=== PATIENT | male | born 1965 | race Caucasian/White ===

== ENCOUNTER 2016-06-04 18:36 | Emergency (ER) | payer MEDICARE ==
[2016-06-04 19:22] LABS: Basophils % (Auto) 0.8 % (0.0-1.8); Hematocrit 43.7 % (35.5-45.6); Hemoglobin 14.6 gm/dl (11.8-15.2); Mean Corpuscular HGB Conc 33 % (32-34); Mean Corpuscular Hemoglobin 30 pg (28-32); Mean Corpuscular Volume 90 fl (84-94); Platelet Count 175 K/mm3 (140-440); Red Blood Count 4.85 M/mm3 (3.65-5.03); Red Cell Distribution Width 14.6 % (13.2-15.2); White Blood Count 8.4 K/mm3 (4.5-11.0)
[2016-06-04 19:44] LABS: BUN/Creatinine Ratio 15.45; Blood Urea Nitrogen 17 mg/dL (9-20); Calcium 9.4 mg/dL (8.4-10.2); Carbon Dioxide 21 mmol/L (22-30); Chloride 101.8 mmol/L (98-107); Glucose 82 mg/dL (75-100); Potassium 4.2 mmol/L (3.6-5.0); Sodium 140 mmol/L (137-145)
[2016-06-04 19:48] LABS: Anion Gap 21 mmol/L
[2016-06-04] MEDS ORDERED: FIORICET PO ONE (20:29)
--- NOTE | 2016-06-04 20:34 | Emergency Department Report ---
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 Patient states that the headache started last night, similar to prior headaches he has had. Denies any new numbness, weakness or any changes speech or swallowing. He also states that last night he had some chest pain however he denies any chest pain at the moment. - Related Data Previous Rx's Medication Instructions Recorded Last Taken Type Acetaminophen [Acetaminophen TAB] 325 mg PO Q6H PRN #30 tablet 02/29/16 Unknown Rx Aspirin [Aspirin BABY CHEW TAB] 81 mg PO QDAY #30 02/29/16 02/28/16 Rx Clopidogrel [Plavix] 75 mg PO QDAY #30 02/29/16 02/28/16 Rx Lisinopril [Zestril TAB] 40 mg PO QDAY #30 02/29/16 02/28/16 Rx Metoprolol [Lopressor TAB] 50 mg PO BID #60 tablet 02/29/16 Unknown Rx Nicotine [Habitrol] 14 mg TD QDAY #14 patch 02/29/16 Unknown Rx Pregabalin [Lyrica] 50 mg PO BID #60 capsule 02/29/16 Unknown Rx Rosuvastatin Calcium [Crestor] 40 mg PO QHS #30 02/29/16 02/27/16 Rx Zolpidem [Ambien] 5 mg PO QHS PRN #15 tablet 02/29/16 Unknown Rx buPROPion SR [Wellbutrin SR] 100 mg PO BID #60 tablet 02/29/16 Unknown Rx oxyCODONE /ACETAMINOPHEN [Percocet 1 tab PO Q6HR PRN #10 tablet 06/04/16 Unknown Rx 5/325] Allergies Allergy/AdvReac Type Severity Reaction Status Date / Time No Known Allergies Allergy Unverified 02/28/16 09:38 ED Review of Systems ROS: Stated complaint: CHEST PAIN Other details as noted in HPI Comment: All other systems reviewed and negative Constitutional: denies: chills, fever Respiratory: denies: cough, shortness of breath Cardiovascular: chest pain Gastrointestinal: denies: abdominal pain, nausea, vomiting Neurological: as per HPI, headache, other Psychiatric: denies: anxiety ED Past Medical Hx - Past Medical History Hx Hypertension: Yes Hx CVA: Yes Hx Heart Attack/AMI: Yes (x2) Hx Congestive Heart Failure: No Hx Diabetes: No Hx Asthma: No Hx COPD: No Additional medical history: [place] -- stents x2 2013; stroke x2 2012. aortic arch aneurysym - evaluated yearly by CT, last done 2014 - Surgical History Additional Surgical History: Cardiac stents x2 - Social History Smoking Status: Light Tobacco Smoker - Medications Home Medications: Home Medications Medication Instructions Recorded Confirmed Last Taken Type Acetaminophen [Acetaminophen TAB] 325 mg PO Q6H PRN #30 tablet 02/29/16 Unknown Rx Aspirin [Aspirin BABY CHEW TAB] 81 mg PO QDAY #30 02/29/16 02/28/16 02/28/16 Rx Clopidogrel [Plavix] 75 mg PO QDAY #30 02/29/16 02/28/16 02/28/16 Rx Lisinopril [Zestril TAB] 40 mg PO QDAY #30 02/29/16 02/28/16 02/28/16 Rx Metoprolol [Lopressor TAB] 50 mg PO BID #60 tablet 02/29/16 Unknown Rx Nicotine [Habitrol] 14 mg TD QDAY #14 patch 02/29/16 Unknown Rx Pregabalin [Lyrica] 50 mg PO BID #60 capsule 02/29/16 Unknown Rx Rosuvastatin Calcium [Crestor] 40 mg PO QHS #30 02/29/16 02/28/16 02/27/16 Rx Zolpidem [Ambien] 5 mg PO QHS PRN #15 tablet 02/29/16 Unknown Rx buPROPion SR [Wellbutrin SR] 100 mg PO BID #60 tablet 02/29/16 Unknown Rx oxyCODONE /ACETAMINOPHEN [Percocet 1 tab PO Q6HR PRN #10 tablet 06/04/16 Unknown Rx 5/325] ED Physical Exam - General Limitations: No Limitations General appearance: alert, in no apparent distress - Head Head exam: Present: atraumatic - Eye Eye exam: Present: normal appearance - ENT ENT exam: Present: normal exam - Respiratory Respiratory exam: Present: normal lung sounds bilaterally - Cardiovascular Cardiovascular Exam: Present: regular rate, normal heart sounds - GI/Abdominal GI/Abdominal exam: Present: soft, tenderness - Neurological Exam Neurological exam: Present: alert, other (RUE and RLE 5/5 strength, LUE and LLE 4/5 strength) - Psychiatric Psychiatric exam: Present: normal affect ED Course Vital Signs 06/04/16 06/04/16 06/04/16 18:52 19:50 20:49 Temperature 98.3 F Pulse Rate 79 Respiratory 18 18 18 Rate Blood Pressure 158/117 O2 Sat by Pulse 99 98 Oximetry ED Medical Decision Making - Lab Data Result diagrams: 06/04/16 19:10 06/04/16 19:10 - EKG Data When compared to previous EKG there are: no significant change - Medical Decision Making Labs pre-ordered, EKG done by EMS, CT of head, fioricet and chest x-ray are ordered. EKG shows normal sinus rhythm without any ST changes, there are T-wave inversions in lead 3 and aVF. Last EKG and system shows similar T-wave inversions in lead 3 and aVF. Labs are unremarkable including negative troponin, CT of head shows no changes. Patient's pain is improved and states now that is this pain is similar to prior episodes and that he was chronic pain. He is denying any chest pain throughout his ER stay. Discussed results of tests with patient. Will discharge home with pain medication. Critical care attestation.: If time is entered above; I have spent that time in minutes in the direct care of this critically ill patient, excluding procedure time. ED Disposition Clinical Impression: Chest pain Qualifiers: Chest pain type: unspecified Qualified Code(s): R07.9 - Chest pain, unspecified Chronic headache Qualifiers: Headache type: unspecified Intractability: not intractable Qualified Code(s): R51 - Headache Disposition: DISCHARGED TO HOME OR SELFCARE Is pt being admited?: No Does the pt Need Aspirin: No Condition: Stable Instructions: Chest Pain (ED) Additional Instructions: Please follow-up with your primary care doctor in the next 3-5 days. Return to the emergency room if you have any new or worsening symptoms. Prescriptions: oxyCODONE /ACETAMINOPHEN [Percocet 5/325] 1 tab PO Q6HR PRN #10 tablet PRN Reason: Pain Referrals: PRIMARY CARE, [Primary Care Provider] - 3-5 Days
--- NOTE | 2016-06-04 21:20 | Cat Scan Report ---
FINAL REPORT PROCEDURE: CT HEAD/BRAIN WO CON TECHNIQUE: Computerized tomography of the head was performed without contrast material. HISTORY: headache hx of CVAs COMPARISON: No prior studies are available for comparison. FINDINGS: Skull and scalp: Normal. Paranasal sinuses: Fluid and thickening ethmoids. Ventricles and subarachnoid spaces: Normal. Cerebrum: No evidence of hemorrhage, acute infarction or mass . Cerebellum and brainstem: No evidence of hemorrhage, acute infarction or mass. Vasculature: No hyperdense MCA. Comments: Mild diffuse atrophy. Minimal microischemic change and lacunar disease.. Chronic parafalcine calcifications anteriorly IMPRESSION: No significant or acute intracranial pathology seen at this time
[2016-06-05 01:53] VITALS: BP 142/78
--- NOTE | 2016-06-05 08:56 | XRay Report ---
Portal chest: The aorta is tortuous. The heart is probably normal or possibly borderline for positioning. The lungs are clear there is no vascular congestion. These findings appear unchanged from February 28, 2016. Impression: No acute findings.
== END 2016-06-05 01:00 | disposition home or self-care (01) ==
LOC: ED 18:36
DX: R07.9 Chest pain, unspecified (principal); R51 Headache; I10 Essential (primary) hypertension; I63.9 Cerebral infarction, unspecified; I25.2 Old myocardial infarction; Z72.0 Tobacco use; Z79.82 Long term (current) use of aspirin
CPT/HCPCS: 36415; 70450; 71010; 80048; 84484; 85025

== ENCOUNTER 2017-02-02 09:32 | Inpatient (IN) | payer MEDICARE ==
--- NOTE | 2017-02-02 09:52 | Emergency Department Report ---
Chief Complaint: Chest Pain Stated Complaint: CHEST PAIN Time Seen by Provider: 02/02/17 09:50 - HPI History of Present Illness: PT c/o chest pain that woke him up at 0600. PT also reports headache and body pain. PT states his left side started to hurt and now his right side is hurting. PT states it feels like someone is kicking him. - ROS Review of Systems: + vomited x 1 - Exam Vital Signs: Vital Signs 02/02/17 09:41 Temperature 98.2 F Pulse Rate 67 Respiratory 18 Rate Blood Pressure 134/94 O2 Sat by Pulse 98 Oximetry Physical Exam: PT is alert and appropriate no acute resp distress noted. rrr MSE screening note: Focused history and physical exam performed. Due to findings the following was ordered: ekg, labs, xr ED Disposition for MSE Condition: Stable
[2017-02-02 10:26] LABS: Anion Gap 20 mmol/L; BUN/Creatinine Ratio 23.33; Blood Urea Nitrogen 21 mg/dL (9-20); Carbon Dioxide 20 mmol/L (22-30); Chloride 103.1 mmol/L (98-107); Glucose 123 mg/dL (75-100); Potassium 3.7 mmol/L (3.6-5.0); Sodium 139 mmol/L (137-145)
--- NOTE | 2017-02-02 10:28 | XRay Report ---
CHEST TWO VIEWS: 02/02/17 09:32:00 CLINICAL: Chest pain and cough. COMPARISON: 11/13/16 FINDINGS: Normal heart and pulmonary vasculature.Aortic tortuosity. The lungs are normally expanded and clear.Degenerative changes in the spine. IMPRESSION: No acute cardiopulmonary process.
[2017-02-02 10:44] LABS: Basophils % (Auto) 0.8 % (0.0-1.8); Eosinophils % (Auto) 5.9 % (0.0-4.3); Hematocrit 41.3 % (35.5-45.6); Hemoglobin 13.7 gm/dl (11.8-15.2); Mean Corpuscular HGB Conc 33 % (32-34); Mean Corpuscular Hemoglobin 31 pg (28-32); Mean Corpuscular Volume 92 fl (84-94); Platelet Count 166 K/mm3 (140-440); Red Cell Distribution Width 14.9 % (13.2-15.2); White Blood Count 6.9 K/mm3 (4.5-11.0)
[2017-02-02] MEDS ORDERED: BABY ASPIRIN PO ONE (13:50)
[2017-02-02] MEDS ORDERED: MORPHINE IV ONE ×2 (13:51→21:49)
--- NOTE | 2017-02-02 14:49 | Emergency Department Report ---
ED Chest Pain HPI - General Chief Complaint: Chest Pain Stated Complaint: CHEST PAIN Time Seen by Provider: 02/02/17 09:50 Source: patient Mode of arrival: Ambulatory Limitations: No Limitations - History of Present Illness Initial Comments: This is a 51-year-old male presents to the emergency department with a complaint of left-sided chest pain as well as some left-sided body aches, shortness of breath at all began this morning. The patient has a history of CVA 2 with some residual left-sided weakness. He has a history of coronary artery disease including NE 2 with a stent being placed here 2 months ago. He also has a past nuchal history of hypertension and previous aortic arch aneurysm which is evaluated yearly by CT. 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 He did not take anything for her symptoms. Presentation. He was dropped off by a friend. No recent travel or sick contacts at home. Severity scale (0 -10): 10 - Related Data Previous Rx's Medication Instructions Recorded Last Taken Type Lisinopril [Zestril TAB] 40 mg PO QDAY #30 02/29/16 1 Day Ago Rx buPROPion SR [Wellbutrin SR] 100 mg PO BID #60 tablet 02/29/16 1 Day Ago Rx Acetaminophen [Acetaminophen TAB] 325 mg PO Q4H PRN #30 tablet 11/13/16 1 Day Ago Rx Aspirin EC [Aspirin Enteric Coated 81 mg PO QDAY #30 tablet 11/13/16 1 Day Ago Rx TAB] Clopidogrel [Plavix] 75 mg PO QDAY #30 tablet 11/13/16 1 Day Ago Rx Metoprolol Tartrate 75 mg PO BID #60 tablet 11/13/16 1 Day Ago Rx Pregabalin [Lyrica] 75 mg PO BID capsule 11/13/16 1 Day Ago Rx Rosuvastatin Calcium [Crestor] 40 mg PO QHS #30 tablet 11/13/16 1 Day Ago Rx Allergies Allergy/AdvReac Type Severity Reaction Status Date / Time No Known Allergies Allergy Verified 11/11/16 10:46 Heart Score - HEART Score History: Moderately suspicious EKG: Normal Age: 45-65 Risk factors: > 3 risk factors or hx of atherosclerotic disease Troponin: < normal limit HEART Score: 4 - Critical Actions Critical Actions: 4-6 pts:12-16.6% risk of adverse cardiac event. Should be admitted ED Review of Systems ROS: Stated complaint: CHEST PAIN Other details as noted in HPI Comment: All other systems reviewed and negative Constitutional: denies: chills, fever Eyes: denies: eye pain, eye discharge, vision change ENT: denies: ear pain, throat pain Respiratory: cough, shortness of breath Cardiovascular: chest pain. denies: edema Gastrointestinal: denies: abdominal pain, nausea, vomiting Genitourinary: denies: urgency, dysuria Musculoskeletal: denies: back pain, joint swelling, arthralgia Skin: denies: rash, lesions Neurological: headache. denies: numbness ED Past Medical Hx - Past Medical History Previous Medical History?: Yes Hx Hypertension: Yes Hx CVA: Yes (left side weakness) Hx Heart Attack/AMI: Yes (x2) Hx Congestive Heart Failure: No Hx Diabetes: No Hx Asthma: No Hx COPD: No Additional medical history[place] -- stents x2 2012; stroke x2 2012. aortic arch aneurysym - evaluated yearly by CT, last done 2014 - Surgical History Past Surgical History?: Yes Additional Surgical History: Cardiac stents x2 - Social History Smoking Status: Former Smoker Substance Use Type: Alcohol, Prescribed - Medications Home Medications: Home Medications Medication Instructions Recorded Confirmed Last Taken Type Lisinopril [Zestril TAB] 40 mg PO QDAY #30 02/29/16 02/02/17 1 Day Ago Rx buPROPion SR [Wellbutrin SR] 100 mg PO BID #60 tablet 02/29/16 02/02/17 1 Day Ago Rx Acetaminophen [Acetaminophen TAB] 325 mg PO Q4H PRN #30 tablet 11/13/16 1 Day Ago Rx Aspirin EC [Aspirin Enteric Coated 81 mg PO QDAY #30 tablet 11/13/16 02/02/17 1 Day Ago Rx TAB] Clopidogrel [Plavix] 75 mg PO QDAY #30 tablet 11/13/16 02/02/17 1 Day Ago Rx Metoprolol Tartrate 75 mg PO BID #60 tablet 11/13/16 02/02/17 1 Day Ago Rx Pregabalin [Lyrica] 75 mg PO BID capsule 11/13/16 02/02/17 1 Day Ago Rx Rosuvastatin Calcium [Crestor] 40 mg PO QHS #30 tablet 06/23/17 09/12/17 1 Day Ago Rx ED Physical Exam - General Limitations: No Limitations - Other Other exam information: GENERAL: The patient is well-developed well-nourished. HENT: Normocephalic. Atraumatic. Patient has moist mucous membranes. EYES: Extraocular motions are intact. Pupils equal reactive to light bilaterally. NECK: Supple. Trachea is midline. CHEST/LUNGS: Clear to auscultation. There is no respiratory distress noted. Chest pain is not reproducible to palpation chest wall. HEART/CARDIOVASCULAR: Regular. There is no tachycardia. There is no gallop rub or murmur. ABDOMEN: Abdomen is soft, nontender. Patient has normal bowel sounds. There is no abdominal distention. SKIN: Skin is warm and dry. NEURO: The patient is awake, alert, and oriented. The patient is cooperative. The patient has no focal neurologic deficits. The patient has normal speech and gait. MUSCULOSKELETAL: There is no tenderness or deformity. There is no evidence of acute injury. ED Course Vital Signs 02/02/17 09:41 Temperature 98.2 F Pulse Rate 67 Respiratory 18 Rate Blood Pressure 134/94 O2 Sat by Pulse 98 Oximetry GEOFFREY score - Geoffrey Score Age > 65: (0) No Aspirin use within the Past 7 Days: (0) No 3 or more CAD Risk Factors: (1) Yes 2 or more Angina events in past 24 hrs: (1) Yes Known CAD with more than 50% Stenosis: (0) No Elevated Cardiac Markers: (0) No ST Deviation Greater than 0.5mm: (0) No GEOFFREY Score: 2 ED Medical Decision Making - Lab Data Result diagrams: 02/02/17 09:53 02/02/17 09:48 - EKG Data -: EKG Interpreted by Me EKG shows normal: sinus rhythm, axis, intervals, QRS complexes (LVH), ST-T waves Rate: normal - EKG Data When compared to previous EKG there are: previous EKG unavailable Interpretation: LVH - Radiology Data Radiology results: image reviewed interpreted by me: Chest x-ray does not show any acute process. There are no pleural effusions, obvious pneumonia and there is no pneumothorax. - Medical Decision Making 51-year-old male presents to the emergency department with a complaint of left- sided chest pain as well as left-sided body pain. He has a history of multiple CVA, multiple NE including a stent placed 2 months ago here at [facility]. EKG does not show any signs of a slightly semi-. Carolann patient has a negative troponin and negative d-dimer. Given aspirin to protect his heart and some pain medication. He will be admitted to the hospital for further evaluation and treatment and has been presented for admission to Dr Dejesus. - Differential Diagnosis NE, PE, Pneumonia, Costochondritis Critical Care Time: No Critical care attestation.: If time is entered above; I have spent that time in minutes in the direct care of this critically ill patient, excluding procedure time. ED Disposition Clinical Impression: Chest pain Qualifiers: Chest pain type: unspecified Qualified Code(s): R07.9 - Chest pain, unspecified CAD (coronary artery disease) Qualifiers: Coronary Disease-Associated Artery/Lesion type: unspecified vessel or lesion type Associated angina: with unspecified angina Disposition: OP ADMIT IP TO THIS HOSP Is pt being admited?: Yes Condition: Stable Instructions: Chest Pain (ED) Referrals: PRIMARY CARE, [Primary Care Provider] - 3-5 Days Time of Disposition: 15:24
--- NOTE | 2017-02-02 15:05 | Admit Criteria Form ---
Admission Criteria Documentation: CARDIOLOGY GRG Clinical Indications for Admission to Inpatient Care ([place]/check or initial the applicable condition/criteria) Hospital admission is needed for appropriate care of the patient because of ANY ONE of the following: [ ] I. Hemodynamic instability as indicated by ALL of the following (1)(2)(3) (4)(5)(6)(7)(8)(9)(10) [ ]a) Vital sign abnormality not readily corrected by appropriate treatment with 12-24 hours for ANY ONE: [ ]i) Hypotension that persists despite appropriate treatment (eg, volume repletion) [ ]ii) Tachycardiathat persists despite appropriate tx ( e.g., analgesia, fluids, sedation as indicated [ ]iii) Orthostatic vital sign changes that persists despite appropriate treatment (eg, volume repletion) [ ]b) Vital sign abnormailty that is severe indicated by ANY ONE of the following: [ ]i) Inadequate perfusion indicated by ANY ONE of the following: [ ] 1) Lactic acidosis (> 2 mmol/L) [ ] 2) New abnormal capillary refill (> 3 seconds) [ ] 3) Reduced urine output [ ] 4) New altered mental status [ ] 5) Myocardial Ischemia [ ] 6) Other metabolic acidosis (arterial pH <7.35 ) not otherwise explained. [ ]ii) Mean arterial pressure[A] less than 60 mm Hg [ ]iii) Mean arterial pressure[A] less than 70 mm Hg after 30 minutes of appropriate treatment (eg, fluid resuscitation) [ ]iv) Sustained heart rate greater than 120 beats per minute in adult or child 6 years or older[B] [ ]v) IV inotropic or vasopressor medication required to maintain adequate blood pressure or perfusion [ ] II. Severe heart failure as indicated by ANY ONE of the following(17)(18) [ ]a) Respiratory distress [ ]b) Hypotension [ ]c) Debilitating anasarca refractory to therapy (eg, tissue breakdown with infection)[C](19) [ ]d) Cardiac arrhythmias of immediate concern [ ]e) Myocardial ischemia [ ] III. Cardiac arrhythmias or findings of immediate concern indicated by ANY ONE of the following (21)(22): [ ] a) Heart rhythms that are inherently dangerous or unstable indicated by ANY ONE of the following (23)(24)(25): [ ] i) Resuscitated ventricular fibrillation or cardiac arrest [ ] ii) Ventricular escape rhythm [ ] iii) Sustained ventricular tachycardia (30 seconds or more of ventricular rhythm at greater than 100 beats per minute) [ ] iv) Nonsustained ventricular tachycardia and ANY ONE of the following: [ ] 1) Suspected cardiac ischemia as cause or consequence of ventricular tachycardia [ ] 2) Acute myocarditis [ ] b) Unstable cardiac conduction defects indicated by ANY ONE of the following(25)(26)(27) [ ] i) Type II second-degree atrioventricular block [ ]ii) Third-degree atrioventricular block [ ]iii) New-onset left bundle branch block with suspected myocardial ischemia [ ]c) Any heart rhythm and ANY ONE of the following (23)(24)(28)(29) (30) [ ] i) Continuous long-term ECG monitoring needed (e.g., initiation of drug requiring monitoring for more than 24 hours) [ ] ii) Patient has automatic implanted cardioverter defibrillator that is repeatedly firing, malfunctioning, or in need of immediate adjustment of settings beyond the scope of ambulatory or observation care [ ]d) Heart rhythms of concern due to ANY ONE of the following: [ ] i) Hypotension [ ] ii) Respiratory distress [ ] iii) Association with other significant symptoms (e.g., bradycardia with syncope or ongoing dizziness, supraventricular tachycardia with chest pain (28)(29)(31) [ ] IV. Monitoring for cardiac contusion beyond the scope of observation care needed [A](32)(33)(34) [ ] V. Surgical or device complication (e.g., valve replacement complication , ICD disfunction or pacemaker dysfunction) (49)(50)(51)(52)(53)(54) [ ] . Inpatient palliative care needed. [F](51)(52) Also use Inpatient Palliative Care Criteria [ ] VII. Nonbacterial thrombotic (marantic) endocarditis(43)(44)(55)(56)(57) [X ] VIII. Cardiology condition, symptom, or finding for which emergency and observation care has failed or are not considered appropriate. [ ] IX. Acute valvular disease requiring inpatient as indicated by ANY ONE of the following (40)(41) [ ]a) Acute valvular regurgitation (42) [ ]b) Noninfectious valvulitis (43)(44) [ ]c) Obstructive valve thrombosis (45)(46) [ ]d) Paravalvular leak(47)(48) [ ]e) Other significant valvular disorder remaining after emergency or observation level of care (as appropriate) [ ]X. Pericardial disease requiring inpatient treatment as indicated by ANY ONE of the following (35)(36)(37)(38) [ ]a) Suspected tamponade [ ]b) Hemopericardium [ ]c) Other significant pericardial disorder remaining after emergency or observation level of care (as appropriate)(39) [ ] XI. Cardiac ischemia beyond scope of emergency and observation care. [ ] XII. Cyanotic heart disease requiring inpatient care as indicated by 1 or more of the following(58)(59)(60): [ ]a) Acute onset of hypoxemia [ ]b) Exacerbation [ ] XIII. Hypertension requiring inpatient treatment as indicated by ANYONE of the following(11)(12)(13)(14): [ ]a) Severe hypertension (SBP greater than 180 mm Hg or DBP greater than 110 mm Hg, or greater than the 95th percentile for age, gender, and height in pediatric patients) that cannot be controlled (eg, to SBP less than 160 mm Hg and DBP less than 100 mm Hg) by emergency department or observation care treatment(15) [ ]b) Acute end organ damage secondary to hypertension (SBP greater than 140 mm Hg or DBP greater than 90 mm Hg) as indicated by ANYONE of the following: [ ] i) Hypertensive encephalopathy (eg, Altered mental status)(16) [ ] ii) Cerebral infarction [ ] iii) Intracranial hemorrhage [ ] iv) Myocardial ischemia or infarction [ ] v) Heart failure (eg, pulmonary edema) [ ] vi) Aortic dissection [ ] vii) Increased creatinine (new) with reduction of more than 50% in estimated glomerular filtration rate from baseline [ ] viii) Papilledema [ ] ix) Retinal hemorrhage [ ] x) Microangiopathic hemolytic anemia [ ] xi) Seizure [ ] xii) Other significant finding secondary to hypertension [ ] XIV. Complications of transplanted heart indicated by ANY ONE of the following(61): [ ]a) Acute graft rejection requiring inpatient management (eg, intravenous imunosuppression)(62)(63) [ ]b) Acute graft heart failure indicated by ANY ONE of the following(64): [ ] i) Hemodynamic instability [ ] ii) Cardiac arrhythmias of immediate concern [ ] iii) Pulmonary edema that is very severe (eg, mechanical ventilation needed, imminent or likely, need for 100% oxygen to keep oxygen saturation above 90%) [ ] iv) Pulmonary edema that is persistent as indicated by ALL of the following: [ ] 1) New need for oxygen therapy to keep oxygen saturation above 90 % (or increased FiO2 need from baseline) [ ] 2) Has not improved sufficiently with emergency department or observation care IV diuretics or other heart failure treatments[E]. [ ] iv) Altered mental status that is severe or persistent [ ] iv) Increased creatinine (new on laboratory test) with reduction of more than 50% in estimated glomerular filtration rate from baseline [ ] iv) Progressively (ongoing) rising creatinine (known from past laboratory test) with reduction of more than 25% in estimated glomerular filtration rate from baseline [ ] iv) Acute renal failure [ ] iv) Acute peripheral ischemia (eg, examination shows pulseless, cool, mottled, or cyanotic extremity) [ ] iv) Pulmonary artery catheter monitoring needed [ ] iv) Other sign or symptom of heart failure requiring inpatient treatment (ie, too severe or not responsive to outpatient and observation care treatment) [ ]c) Infection requiring inpatient management (eg, Hemodynamic instability, need for intravenous antimicrobial treatment)(66)(67)(68)(69)(70) [ ]d) Cardiac allograft vasculopathy requiring inpatient management (eg evidence of cardiacischemia)(71) [ ]e) Other complication of transplanted heart (eg, stroke, severe pulmonary hypertension, severe valvular dysfunction) requiring inpatient management(72) The original [employer] content created by [employer] has been revised. The portions of the content which have been revised are identified through the use of italic text or in bold, and [email or web address] has neither reviewed nor approved the modified material. All other unmodified content is copyright [employer]. Please see references footnoted in the original [employer] edition 2017
[2017-02-02] MEDS ORDERED: DILAUDID IV ONE (15:22)
--- NOTE | 2017-02-02 17:50 | History and Physical Report ---
History of Present Illness Chief complaint: My chest hurts History of present illness: 51 YO Male with HTN, CVA with LHP, MD, CAD S/P Stent Placement, Nicotine Dependence, TAA, Obesity presents to ED for evaluation. Pt states that he experienced acute onset pain in his chest this morning upon waking around 0700 hrs, with worsening symptoms over the past 2 hours. Pain is 10/10, localized to the left chest, constant, and is associated with shortness of breath and diaphoresis. Pain not worsened with exertion or relieved with rest. Pt denies fever, Chills, Palpitations, syncope, headaches, vertigo, seizures, productive cough, recent ill contacts, leg pain, calf pain, prolonged travel/immobility, individual/family history of DVT/PE. Past History Past Medical History: acute MD, CAD, hypertension, stroke Past Surgical History: Other (stent) Social history: single. denies: smoking, alcohol abuse, prescription drug abuse Family history: diabetes, hypertension Medications and Allergies Allergies Allergy/AdvReac Type Severity Reaction Status Date / Time No Known Allergies Allergy Verified 11/11/16 10:46 Home Medications Medication Instructions Recorded Confirmed Last Taken Type Lisinopril [Zestril TAB] 40 mg PO QDAY #30 02/29/16 02/02/17 1 Day Ago Rx buPROPion SR [Wellbutrin SR] 100 mg PO BID #60 tablet 02/29/16 02/02/17 1 Day Ago Rx Acetaminophen [Acetaminophen TAB] 325 mg PO Q4H PRN #30 tablet 11/13/16 1 Day Ago Rx Aspirin EC [Aspirin Enteric Coated 81 mg PO QDAY #30 tablet 11/13/16 02/02/17 1 Day Ago Rx TAB] Clopidogrel [Plavix] 75 mg PO QDAY #30 tablet 11/13/16 02/02/17 1 Day Ago Rx Metoprolol Tartrate 75 mg PO BID #60 tablet 11/13/16 02/02/17 1 Day Ago Rx Pregabalin [Lyrica] 75 mg PO BID capsule 11/13/16 02/02/17 1 Day Ago Rx Rosuvastatin Calcium [Crestor] 40 mg PO QHS #30 tablet 11/13/16 02/02/17 1 Day Ago Rx Review of Systems Constitutional: no weight loss, no weight gain, no fever Ears, nose, mouth and throat: no ear pain, no ear discharge, no tinnitis, no decreased hearing, no nose pain Cardiovascular: chest pain, no palpitations, no rapid/irregular heart beat, no edema, no lightheadedness Respiratory: no cough, no cough with sputum, no excessive sputum Gastrointestinal: no abdominal pain, no nausea, no vomiting, no diarrhea, no constipation Genitourinary Male: no dysuria, no hematuria, no flank pain, no discharge, no urinary frequency Rectal: no pain, no incontinence, no bleeding Musculoskeletal: no neck stiffness, no neck pain, no shooting arm pain, no arm numbness/tingling Integumentary: no rash, no pruritis, no wounds Neurological: no paralysis, no weakness, no parathesias, no numbness, no tingling Psychiatric: no anxiety, no memory loss, no change in sleep habits, no sleep disturbances, no insomnia, no hypersomnia Endocrine: no cold intolerance, no heat intolerance, no polyphagia, no excessive thirst, no polyuria Hematologic/Lymphatic: no easy bruising, no easy bleeding Allergic/Immunologic: no urticaria, no allergic rhinitis, no wheezing Exam - Constitutional Vitals: Temp Pulse Resp BP Pulse Ox 98.2 F 97 H 16 137/97 97 02/02/17 09:41 02/02/17 15:35 02/02/17 15:35 02/02/17 15:35 02/02/17 15:35 General appearance: Present: no acute distress, well-nourished - EENT Eyes: Present: PERRL ENT: hearing intact, clear oral mucosa - Neck Neck: Present: supple, normal ROM - Respiratory Respiratory effort: normal Respiratory: bilateral: CTA - Cardiovascular Heart Sounds: Present: S1 & S2. Absent: rub, click - Extremities Extremities: pulses symmetrical, No edema Peripheral Pulses: within normal limits - Abdominal General gastrointestinal: Present: soft, non-tender, non-distended, normal bowel sounds Male genitourinary: Present: normal - Integumentary Integumentary: Present: clear, warm, dry - Musculoskeletal Musculoskeletal: gait normal, strength equal bilaterally - Psychiatric Psychiatric: appropriate mood/affect, intact judgment & insight - Neurologic Neurologic: CNII-XII intact, moves all extremities Results - Labs CBC & Chem 7: 02/02/17 19:14 02/02/17 19:14 Labs: Abnormal lab results 02/02/17 02/02/17 Range/Units 09:48 09:53 Eos % (Auto) 5.9 H (0.0-4.3) % Carbon Dioxide 20 L (22-30) mmol/L BUN 21 H (9-20) mg/dL Glucose 123 H (75-100) mg/dL Assessment and Plan - Patient Problems (1) ACS (acute coronary syndrome) Current Visit: No Status: Acute Plan to address problem: Chest Pain protocol: Serial cardiac enzymes, ekg, telemetry, supportive care. Repeat cardiac evaluation, (2) Headache Current Visit: Yes Status: Acute Qualifiers: Headache type: H Headache chronicity pattern: H Intractability: I Plan to address problem: Resolved: CT Head without contrast, repeat physical exam (3) CAD (coronary artery disease) Current Visit: Yes Status: Acute Qualifiers: Coronary Disease-Associated Artery/Lesion type: unspecified vessel or lesion type [place] vs. transplanted heart: N Associated angina: with unspecified angina Plan to address problem: Serial cardiac enzymes, ekg, telemetry, continue medical management, resume home medication (4) HTN (hypertension) Current Visit: No Status: Acute Qualifiers: Hypertension type: H Plan to address problem: Monitor BP q shift, resume home medication, (5) DVT prophylaxis Current Visit: Yes Status: Acute
[2017-02-02] MEDS ORDERED: TYLENOL PO PRN (18:29)
[2017-02-02] MEDS ORDERED: PROVENTIL IH PRN (18:29)
[2017-02-02] MEDS ORDERED: ZOFRAN IV PRN (18:29)
[2017-02-02] MEDS ORDERED: DULCOLAX PR PRN (18:29)
[2017-02-02] MEDS ORDERED: SODIUM CHLORIDE FLUSH SYRINGE 10 ML IV PRN (18:29)
[2017-02-02] MEDS ORDERED: MILK OF MAGNESIA PO PRN (18:29)
--- NOTE | 2017-02-02 19:32 | Cat Scan Report ---
FINAL REPORT PROCEDURE: CT HEAD/BRAIN WO CON TECHNIQUE: Computerized tomography of the head was performed without contrast material. HISTORY: Headache. DLP 1147.3 mGy-cm. COMPARISON: CT scan of the brain dated 06/04/2016. FINDINGS: Skull and scalp: Normal. Paranasal sinuses: Moderate ethmoid and left frontal sinusitis. Minimal bilateral maxillary sinusitis. Ventricles and subarachnoid spaces: Normal. Cerebrum: No evidence of hemorrhage, acute infarction or mass . Cerebellum and brainstem: No evidence of hemorrhage, acute infarction or mass. Vasculature: Mild atherosclerosis. Comments: None. IMPRESSION: No new CT evidence of acute intracranial pathology. Consider MRI of the brain for further evaluation if there is continued clinical concern and patient has no contraindication to MRI. Sinusitis.
[2017-02-02 19:48] LABS: Basophils % (Auto) 0.7 % (0.0-1.8); Eosinophils % (Auto) 5.4 % (0.0-4.3); Hematocrit 41.8 % (35.5-45.6); Mean Corpuscular HGB Conc 33 % (32-34); Mean Corpuscular Hemoglobin 31 pg (28-32); Mean Corpuscular Volume 91 fl (84-94); Platelet Count 165 K/mm3 (140-440); Red Blood Count 4.58 M/mm3 (3.65-5.03); Red Cell Distribution Width 15.1 % (13.2-15.2); White Blood Count 6.9 K/mm3 (4.5-11.0)
[2017-02-02 19:57] LABS: BUN/Creatinine Ratio 18.88; Blood Urea Nitrogen 17 mg/dL (9-20); Calcium 9.3 mg/dL (8.4-10.2); Carbon Dioxide 28 mmol/L (22-30); Chloride 99.9 mmol/L (98-107); Glucose 91 mg/dL (75-100); Potassium 4.2 mmol/L (3.6-5.0); Sodium 139 mmol/L (137-145)
[2017-02-02 19:59] LABS: Anion Gap 15 mmol/L
[2017-02-02] MEDS ORDERED: MORPHINE ONE (21:53)
[2017-02-03] MEDS: PERCOCET 5/325 PO PRN ×3 (03:15→13:24)
[2017-02-03] MEDS ORDERED: LEXISCAN IV ONE (09:29)
[2017-02-03 13:15] VITALS: BP 146/91
--- NOTE | 2017-02-03 15:10 | Discharge Summary ---
Providers - Providers Date of Admission: 02/02/17 18:29 Attending physician: JAVON ONEAL MD 02/03/17 10:03 Consult to Physician [CONS] Routine Consulting Provider: ROMIE IRVING Reason For Exam: chest pain Primary care physician: RENETTA ALCALA Hospitalization Reason for admission: chest pain Condition: Stable Hospital course: 51 YO Male with HTN, CVA with LHP, [place], CAD S/P Stent Placement, Nicotine Dependence, TAA, Obesity presents to ED for evaluation. Pt states that he experienced acute onset pain in his chest this morning upon waking around 0700 hrs, with worsening symptoms over the past 2 hours. Pain is 10/10, localized to the left chest, constant, and is associated with shortness of breath and diaphoresis. Pain not worsened with exertion or relieved with rest. Pt denies fever, Chills, Palpitations, syncope, headaches, vertigo, seizures, productive cough, recent ill contacts, leg pain, calf pain, prolonged travel/immobility, individual/family history of DVT/PE. Patient presented to have a stress test due to severe coronary artery disease and prior history of in-stent restenosis. Stress test was done and is negative. I did discuss the patient with cardiology was consulted patient. His stable to be discharged I encouraged his compliance. He'll continue on his medications and follow with cardiology outpatient. Patient has a previous history of stable stroke gait is unsteady walks with cane. Patient was given counseling about 15 minutes on need to quit tobacco use. (1) Chest pain- Atypical, secondary to Costochondiritis (2) Headache (3) CAD (coronary artery disease) (4) HTN (hypertension) (5) ataxic gait secondary to history of CVA (6) hyperlipidemia (7) tobacco dependence Disposition: -01 TO HOME OR SELFCARE Time spent for discharge: 35 mins Core Measure Documentation - Palliative Care Palliative Care/ Comfort Measures: Not Applicable - Core Measures Any of the following diagnoses?: none - VTE Discharge Requirements Deep Vein Thrombosis/Pulmonary Embolism Present on Admission: No Exam - Physical Exam Narrative exam: VITAL SIGNS: Reviewed. GENERAL: The patient appeared well nourished and normally developed. Vital signs as documented. HEAD: No signs of head trauma. EYES: Pupils are equal. Extraocular motions intact. EARS: Hearing grossly intact. MOUTH: Oropharynx is normal. NECK: No adenopathy, no JVD. CHEST: Chest with clear breath sounds bilaterally. No wheezes, rales, or rhonchi. CARDIAC: Regular rate and rhythm. S1 and S2, without murmurs, gallops, or rubs. VASCULAR: No Edema. Peripheral pulses normal and equal in all extremities. ABDOMEN: Soft, without detectable tenderness. No sign of distention. No rebound or guarding, and no masses palpated. Bowel Sounds normal. MUSCULOSKELETAL: Good range of motion of all major joints. Extremities without clubbing, cyanosis or edema. NEUROLOGIC EXAM: Alert and oriented x 3. No focal sensory or strength deficits. Speech normal. Follows commands. Gait not assessed PSYCHIATRIC: Mood normal. SKIN: No rash or lesions. - Constitutional Vitals: Temp Pulse Resp BP Pulse Ox 98.9 F 90 16 146/91 98 02/03/17 08:51 02/03/17 11:28 02/03/17 08:51 02/03/17 11:28 02/03/17 08:51 Plan Activity: advance as tolerated, fall precautions Diet: low fat, low cholesterol Special Instructions: record daily BP diary Follow up with: PRIMARY MD ERNST [Referring] - 3-5 Days ROMIE IRVING MD [Staff Physician] - 7 Days
--- NOTE | 2017-02-04 02:01 | Treadmill Report ---
INDICATION: Chest pain. ORDERING PHYSICIAN: Dr. Anel Ford. FINDINGS: There is evidence of a mildly decreased uptake noted in the inferior wall on the stress imaging, most likely due to overlying adjacent uptake by the liver/bowels. There is no definite evidence of scintigraphic ischemia. The left ventricle is normal in size and systolic function. The left ventricular ejection fraction is measured at 58%. There is normal wall motion and wall thickening is noted on gated imaging. CONCLUSION: 1. No scintigraphic evidence of myocardial ischemia. 2. Mildly decreased uptake noted in the inferior wall on stress imaging due to overlying liver/bowel uptake. 3. Normal left ventricular size and systolic function. 4. This is a low risk myocardial perfusion imaging study consistent with a less than 1% cardiovascular mortality in the next 1 year. [facility]# [id number] SANTANA/ASRAH
== END 2017-02-03 16:00 | disposition home or self-care (01) | DRG 206 ==
LOC: ED 09:32 → 4A 18:29
PROVIDERS: ADMIT Internal Medicine; ATTEND Internal Medicine
DX: M94.0 Chondrocostal junction syndrome [Tietze] (principal); I24.9 Acute ischemic heart disease, unspecified; I69.354 Hemiplegia and hemiparesis following cerebral infarction affecting left non-dominant side; I25.10 Atherosclerotic heart disease of native coronary artery without angina pectoris; E66.9 Obesity, unspecified; I10 Essential (primary) hypertension; E78.5 Hyperlipidemia, unspecified; F17.200 Nicotine dependence, unspecified, uncomplicated; R51 Headache; Z68.27 Body mass index [BMI] 27.0-27.9, adult; I25.2 Old myocardial infarction; Z95.5 Presence of coronary angioplasty implant and graft; Z83.3 Family history of diabetes mellitus; Z82.49 Family history of ischemic heart disease and other diseases of the circulatory system; Z71.6 Tobacco abuse counseling; Z79.82 Long term (current) use of aspirin
CPT/HCPCS: 36415; 70450; 71020; 78452; 80048; 84484; 85025; 85379; 93005; 93010; 93017; 93306; 96374; 96375; 96376; A9502; J1170; J2270; J2785

== ENCOUNTER 2017-05-08 14:03 | Inpatient (IN) | payer MEDICARE ==
[2017-05-08 15:22] LABS: Basophils % (Auto) 0.9 % (0.0-1.8); Eosinophils % (Auto) 4.1 % (0.0-4.3); Hematocrit 46.8 % (35.5-45.6); Hemoglobin 15.3 gm/dl (11.8-15.2); Mean Corpuscular HGB Conc 33 % (32-34); Mean Corpuscular Hemoglobin 29 pg (28-32); Mean Corpuscular Volume 90 fl (84-94); Platelet Count 178 K/mm3 (140-440); Red Blood Count 5.23 M/mm3 (3.65-5.03); Red Cell Distribution Width 14.1 % (13.2-15.2); White Blood Count 9.2 K/mm3 (4.5-11.0)
[2017-05-08 15:35] LABS: INR 0.98 (0.87-1.13)
[2017-05-08 15:40] LABS: Anion Gap 18 mmol/L; BUN/Creatinine Ratio 19; Blood Urea Nitrogen 17 mg/dL (9-20); Calcium 9.3 mg/dL (8.4-10.2); Carbon Dioxide 24 mmol/L (22-30); Chloride 99.9 mmol/L (98-107); Creatine Kinase 149 units/L (55-170); Glucose 99 mg/dL (75-100); Potassium 4.2 mmol/L (3.6-5.0); Sodium 138 mmol/L (137-145)
[2017-05-08] MEDS ORDERED: ZOFRAN IV ONE (15:53)
[2017-05-08] MEDS ORDERED: DILAUDID IV ONE ×2 (15:53→18:06)
[2017-05-08 16:02] LABS: Bilirubin,Urine NEG (Negative); Blood,Urine NEG (Negative); Ketones,Urine NEG (Negative); Leukocyte Esterase,Urine NEG (Negative); Nitrite,Urine NEG (Negative); Protein,Urine <15 mg/dL mg/dL (Negative); Urobilinogen,Urine < 2.0 mg/dL (<2.0)
[2017-05-08] MEDS ORDERED: NACL ONE (16:03)
[2017-05-08 16:04] LABS: WBC,Urine < 1.0 /HPF (0.0-6.0)
[2017-05-08] MEDS ORDERED: DILAUDID ONE ×2 (16:16→18:12)
--- NOTE | 2017-05-08 17:00 | Cat Scan Report ---
FINAL REPORT EXAM: CT HEAD/BRAIN WO CON HISTORY: syncope, htn, hx of aortic aneurysm TECHNIQUE: CT head without contrast PRIORS: None. FINDINGS: No acute intra-axial or extra-axial hemorrhage is identified. There is no evidence of midline shift or mass effect. The ventricles and sulci are within normal limits. Baldwin-white matter differentiation is intact. No acute parenchymal abnormalities seen. Bony calvarium is grossly intact. Visualized portions of the mastoids and paranasal sinuses are unremarkable. IMPRESSION: Negative CT head
--- NOTE | 2017-05-08 17:26 | Cat Scan Report ---
FINAL REPORT EXAM: CT ANGIO ABDOMEN PELVIS HISTORY: syncope, htn, hx of aortic aneurysm TECHNIQUE: CT abdomen and pelvis with intravenous contrast PRIORS: None. FINDINGS: No acute abnormality identified in the lung bases. Within the right lobe of the liver there is a 3.5 centimeter low-density focus with nodular peripheral enhancement pattern consistent with hemangioma. The spleen demonstrates normal size and attenuation. No pancreatic abnormalities seen. The kidneys demonstrate symmetric contrast enhancement. No evidence of hydronephrosis. The adrenal glands are unremarkable Abdominal aorta is normal in caliber. There is distal aortoiliac atherosclerotic calcification. Noted is a small supraumbilical ventral hernia containing fatty tissue. No bowel loops within the hernia sac No pathologically enlarged lymph nodes are identified. No signs of free fluid or free air No evidence of small bowel dilatation. Colon is nondistended. No pericolonic inflammatory change. Urinary bladder is unremarkable. IMPRESSION: Negative. No acute abnormalities seen
--- NOTE | 2017-05-08 17:28 | Emergency Department Report ---
ED Syncope HPI - General Chief Complaint: Chest Pain Stated Complaint: CHEST PAIN Time Seen by Provider: 05/08/17 14:38 Source: patient Exam Limitations: no limitations - History of Present Illness Initial Comments: 51-year-old male with a past medical history CHF, CVA with residual left-sided weakness, CAD with stent 2, aortic arch aneurysm, and hypertension presents to the hospital complaints of lightheadedness and intermittent vomiting for last 2 weeks. Today patient had a syncopal episode after standing. Symptoms preceded by lightheadedness. Patient apparently has chronic pain and numbness to his left side of face, and left side of body including upper and lower extremities since CVA. This pain has worsened since syncope episode and fall today. Patient also has ongoing chronic left-sided chest pain and complains of chest wall tenderness extending up to his upper chest and trapezius area. Pain overall is 7/10 in intensity and worsened movement palpation. - Related Data Allergies/Adverse Reactions: Allergies No Known Allergies Allergy (Verified 11/11/16 10:46) Home Medications: Ambulatory Orders Lisinopril [Zestril TAB] 40 mg PO QDAY #30 02/29/16 buPROPion SR [Wellbutrin SR] 100 mg PO BID #60 tablet 02/29/16 Acetaminophen [Acetaminophen TAB] 325 mg PO Q4H PRN #30 tablet 11/13/16 Aspirin EC [Aspirin Enteric Coated TAB] 81 mg PO QDAY #30 tablet 11/13/16 Clopidogrel [Plavix] 75 mg PO QDAY #30 tablet 11/13/16 Metoprolol Tartrate 75 mg PO BID #60 tablet 11/13/16 Pregabalin [Lyrica] 75 mg PO BID capsule 11/13/16 Rosuvastatin Calcium [Crestor] 40 mg PO QHS #30 tablet 11/13/16 ED Review of Systems ROS: Stated complaint: CHEST PAIN Other details as noted in HPI Comment: All other systems reviewed and negative Other: Constitutional: No fevers chills or weight loss Eyes: No eye pain visual changes or discharge ENT: No ear pain or throat pain Neck: Denies pain Respiratory: Denies cough wheezing Cardiovascular: As per HPI GI: Denies abdominal pain, diarrhea : Denies dysuria Musculoskeletal: HPI Skin: Denies rash, lesions, erythema Neurologic: As per HPI Psychiatric: Denies suicidal ideation, hallucinations ED Past Medical Hx - Past Medical History Hx Hypertension: Yes Hx CVA: Yes (left side weakness) Hx Heart Attack/AMI: Yes (x2) Hx Congestive Heart Failure: Yes Hx Diabetes: No Hx Asthma: No Hx COPD: No Additional medical history: [place] -- stents x2 2012; stroke x2 2012. aortic arch aneurysym - evaluated yearly by CT, last done 2014 - Surgical History Additional Surgical History: Cardiac stents x2 - Social History Smoking Status: Former Smoker Substance Use Type: None - Medications Home Medications: Home Medications Medication Instructions Recorded Confirmed Last Taken Type Lisinopril [Zestril TAB] 40 mg PO QDAY #30 02/29/16 05/08/17 1 Day Ago Rx ~02/01/17 buPROPion SR [Wellbutrin SR] 100 mg PO BID #60 tablet 02/29/16 05/08/17 1 Day Ago Rx ~02/01/17 Acetaminophen [Acetaminophen TAB] 325 mg PO Q4H PRN #30 tablet 11/13/16 1 Day Ago Rx ~02/01/17 Aspirin EC [Aspirin Enteric Coated 81 mg PO QDAY #30 tablet 11/13/16 05/08/17 1 Day Ago Rx TAB] ~02/01/17 Clopidogrel [Plavix] 75 mg PO QDAY #30 tablet 11/13/16 05/08/17 1 Day Ago Rx ~02/01/17 Metoprolol Tartrate 75 mg PO BID #60 tablet 11/13/16 05/08/17 1 Day Ago Rx ~02/01/17 Pregabalin [Lyrica] 75 mg PO BID capsule 11/13/16 05/08/17 1 Day Ago Rx ~02/01/17 Rosuvastatin Calcium [Crestor] 40 mg PO QHS #30 tablet 11/13/16 05/08/17 1 Day Ago Rx ~02/01/17 ED Physical Exam - General Limitations: No Limitations - Other Other exam information: General: No limitations, patient is alert in no acute distress Head exam: Atraumatic, normocephalic Eyes exam: Normal appearance ENT: Moist mucous membrane, normal oropharynx Neck exam: Normal inspection, full range of motion, no meningismus nontender Respiratory exam: Clear to auscultation bilateral, no wheezes, rales, crackles Cardiovascular: Normal rate and rhythm, left chest wall tenderness Abdomen: Soft, nondistended, and nontender, with normal bowel sounds, no rebound, or guarding Extremity: Full range of motion normal inspection no deformity. Pain with movement illness arm, leg Back: Normal Inspection, full range of motion, pain to the left lower and mid back Neurologic: Alert, oriented x3, speech is slurred mildly chronically, left arm drift, left leg drift, 5/5 right arm and leg strength. Decreased sensation to left arm and leg on palpation (chronic neuro findings) Psychiatric: normal affect, normal mood Skin: Warm, dry, intact ED Course Vital Signs 05/08/17 05/08/17 14:36 15:24 Temperature 98 F Pulse Rate 54 L 54 L Respiratory 16 16 Rate Blood Pressure 162/110 Blood Pressure 149/104 [Left] O2 Sat by Pulse 96 98 Oximetry ED Medical Decision Making - Lab Data Result diagrams: 05/08/17 15:01 05/08/17 15:01 Lab Results 05/08/17 05/08/17 05/08/17 Range/Units 15:01 15:01 15:01 WBC 9.2 (4.5-11.0) K/mm3 RBC 5.23 H (3.65-5.03) M/mm3 Hgb 15.3 H (11.8-15.2) gm/dl Hct 46.8 H (35.5-45.6) % MCV 90 (84-94) fl MCH 29 (28-32) pg MCHC 33 (32-34) % RDW 14.1 (13.2-15.2) % Plt Count 178 (140-440) K/mm3 Lymph % (Auto) 27.1 (13.4-35.0) % [place] % (Auto) 7.8 H (0.0-7.3) % Eos % (Auto) 4.1 (0.0-4.3) % Baso % (Auto) 0.9 (0.0-1.8) % Lymph # 2.5 (1.2-5.4) K/mm3 [place]in # 0.7 (0.0-0.8) K/mm3 Eos # 0.4 (0.0-0.4) K/mm3 Baso # 0.1 (0.0-0.1) K/mm3 Seg Neutrophils % 60.1 (40.0-70.0) % Seg Neutrophils # 5.5 (1.8-7.7) K/mm3 PT (12.2-14.9) Sec. INR (0.87-1.13) Sodium 138 (137-145) mmol/L Potassium 4.2 (3.6-5.0) mmol/L Chloride 99.9 (98-107) mmol/L Carbon Dioxide 24 (22-30) mmol/L Anion Gap 18 mmol/L BUN 17 (9-20) mg/dL Creatinine 0.9 (0.8-1.5) mg/dL Estimated GFR > 60 ml/min BUN/Creatinine Ratio 19 % Glucose 99 (75-100) mg/dL POC Glucose (70-105) Calcium 9.3 (8.4-10.2) mg/dL Total Creatine Kinase 149 (55-170) units/L CK-MB (CK-2) 2.0 (0.0-4.0) ng/mL CK-MB (CK-2) Rel Index 1.3 (0-4) Troponin T < 0.010 (0.00-0.029) ng/mL NT-Pro-B Natriuret Pep 197.9 (0-450) pg/mL TSH 0.565 (0.270-4.200) mlU/mL Free T4 1.23 (0.76-1.46) ng/dL Urine Color (Yellow) Urine Turbidity (Clear) Urine pH (5.0-7.0) Ur Specific [place] (1.003-1.030) Urine Protein (Negative) mg/dL Urine Glucose (UA) (Negative) mg/dL Urine Ketones (Negative) mg/dL Urine Blood (Negative) Urine Nitrite (Negative) Urine Bilirubin (Negative) Urine Urobilinogen (<2.0) mg/dL Ur Leukocyte Esterase (Negative) Urine WBC (Auto) (0.0-6.0) /HPF Urine RBC (Auto) (0.0-6.0) /HPF 05/08/17 05/08/17 05/08/17 Range/Units 15:01 15:01 15:24 WBC (4.5-11.0) K/mm3 RBC (3.65-5.03) M/mm3 Hgb (11.8-15.2) gm/dl Hct (35.5-45.6) % MCV (84-94) fl MCH (28-32) pg MCHC (32-34) % RDW (13.2-15.2) % Plt Count (140-440) K/mm3 Lymph % (Auto) (13.4-35.0) % [place] % (Auto) (0.0-7.3) % Eos % (Auto) (0.0-4.3) % Baso % (Auto) (0.0-1.8) % Lymph # (1.2-5.4) K/mm3 [place]in # (0.0-0.8) K/mm3 Eos # (0.0-0.4) K/mm3 Baso # (0.0-0.1) K/mm3 Seg Neutrophils % (40.0-70.0) % Seg Neutrophils # (1.8-7.7) K/mm3 PT 13.5 (12.2-14.9) Sec. INR 0.98 (0.87-1.13) Sodium (137-145) mmol/L Potassium (3.6-5.0) mmol/L Chloride (98-107) mmol/L Carbon Dioxide (22-30) mmol/L Anion Gap mmol/L BUN (9-20) mg/dL Creatinine (0.8-1.5) mg/dL Estimated GFR ml/min BUN/Creatinine Ratio % Glucose (75-100) mg/dL POC Glucose 92 (70-105) Calcium (8.4-10.2) mg/dL Total Creatine Kinase (55-170) units/L CK-MB (CK-2) (0.0-4.0) ng/mL CK-MB (CK-2) Rel Index (0-4) Troponin T (0.00-0.029) ng/mL NT-Pro-B Natriuret Pep (0-450) pg/mL TSH (0.270-4.200) mlU/mL Free T4 (0.76-1.46) ng/dL Urine Color Straw (Yellow) Urine Turbidity Clear (Clear) Urine pH 6.0 (5.0-7.0) Ur Specific Fowler 1.008 (1.003-1.030) Urine Protein <15 mg/dl (Negative) mg/dL Urine Glucose (UA) Neg (Negative) mg/dL Urine Ketones Neg (Negative) mg/dL Urine Blood Neg (Negative) Urine Nitrite Neg (Negative) Urine Bilirubin Neg (Negative) Urine Urobilinogen < 2.0 (<2.0) mg/dL Ur Leukocyte Esterase Neg (Negative) Urine WBC (Auto) < 1.0 (0.0-6.0) /HPF Urine RBC (Auto) 1.0 (0.0-6.0) /HPF - EKG Data -: EKG Interpreted by Me EKG shows normal: sinus rhythm, axis (-11), QRS complexes (94), ST-T waves (no stemi/t inv) Rate: normal - EKG Data When compared to previous EKG there are: no significant change - Radiology Data Radiology results: report reviewed CT head: No acute findings CT angiogram chest: ascending aortic aneurysm without dissection CT angiogram abdomen and pelvis: No acute findings - Medical Decision Making I suspect that patient's chest pain and left-sided body pain are chronic. Patient states symptoms worsened after fall. Suspicion of a syncopal episode with significant cardiac history he will be admitted to the hospital. Initial cardiac workup including EKG, cardiac enzymes are unremarkable and CTs do not show any acute findings and no signs of dissection. Patient received repeated doses of Dilaudid for pain in the ED. Patient is also bradycardic and is on a beta elvis. No associated hypotension - Differential Diagnosis dehydration, anemia, dissection, CVA, ICH, NH Critical Care Time: No Critical care attestation.: If time is entered above; I have spent that time in minutes in the direct care of this critically ill patient, excluding procedure time. ED Disposition Clinical Impression: Chest pain, Syncope, Headache, History of CVA with residual deficit, Left- sided weakness, Pain of left side of body, HTN (hypertension), Bradycardia, Ascending aortic aneurysm, History of heart artery stent Disposition: -09 OP ADMIT IP TO THIS HOSP Is pt being admited?: Yes Condition: Stable Time of Disposition: 18:47 (Dr Saenz/hosp)
--- NOTE | 2017-05-08 18:13 | Cat Scan Report ---
FINAL REPORT EXAM: CT ANGIO CHEST HISTORY: syncope, htn, hx of aortic aneurysm TECHNIQUE: CT chest CT angiogram with reconstructions PRIORS: None. FINDINGS: There is no evidence of filling defect within the central pulmonary vasculature to suggest the presence of acute pulmonary embolus. No evidence of mediastinal pathologic lymph node enlargement There is fusiform aneurysmal dilatation of the ascending thoracic aorta measuring 4.8 x 4.5 centimeters. No evidence for dissection. The descending aorta is normal in caliber. No focal pulmonary infiltrate identified. No pleural fluid collection seen. No acute pulmonary abnormality noted. Visualized portion of the upper abdomen demonstrates no acute change. IMPRESSION: Ascending aortic aneurysm. If any prior studies could be obtained for comparison to assess for stability this be helpful. No acute abnormality is otherwise identified in the chest
--- NOTE | 2017-05-08 23:43 | History and Physical Report ---
History of Present Illness Date of examination: 05/08/17 Date of admission: 05/08/17 19:06 Chief complaint: Cc Passed out in [place] History of present illness: History of Present Illness 51-year-old male with a past medical history CHF, CVA with residual left-sided weakness, CAD with stent 2, aortic arch aneurysm, and hypertension presents to the hospital complaints of lightheadedness and intermittent vomiting for last 2 weeks. Today patient had a syncopal episode after standing. Symptoms preceded by lightheadedness. Patient apparently has chronic pain and numbness to his left side of face, and left side of body including upper and lower extremities since CVA. This pain has worsened since syncope episode and fall today. Patient also has ongoing chronic left-sided chest pain and complains of chest wall tenderness extending up to his upper chest and trapezius area. Pain overall is 7/10 in intensity and worsened movement palpation. Past Medical History Hx Hypertension: Yes Hx CVA: Yes (left side weakness) Hx Heart Attack/AMI: Yes (x2) Hx Congestive Heart Failure: Yes Additional medical history: [place] -- stents x2 2012; stroke x2 2012. aortic arch aneurysym - evaluated yearly by CT, last done 2014 Surgical History Additional Surgical History: Cardiac stents x2 Social History Smoking Status: Former Smoker Substance Use Type: None Fam Hx Htn Medications Home Medications: Home Medications Medication Instructions Recorded Confirmed Last Taken Type Lisinopril [Zestril TAB] 40 mg PO QDAY #30 02/29/16 05/08/17 1 Day Ago Rx ~02/01/17 buPROPion SR [Wellbutrin SR] 100 mg PO BID #60 tablet 02/29/16 05/08/17 1 Day Ago Rx ~02/01/17 Acetaminophen [Acetaminophen TAB] 325 mg PO Q4H PRN #30 tablet 11/13/16 1 Day Ago Rx ~02/01/17 Aspirin EC [Aspirin Enteric Coated 81 mg PO QDAY #30 tablet 11/13/16 05/08/17 1 Day Ago Rx TAB] ~02/01/17 Clopidogrel [Plavix] 75 mg PO QDAY #30 tablet 11/13/16 05/08/17 1 Day Ago Rx ~02/01/17 Metoprolol Tartrate 75 mg PO BID #60 tablet 11/13/16 05/08/17 1 Day Ago Rx ~02/01/17 Pregabalin [Lyrica] 75 mg PO BID capsule 11/13/16 05/08/17 1 Day Ago Rx ~02/01/17 Rosuvastatin Calcium [Crestor] 40 mg PO QHS #30 tablet 11/13/16 05/08/17 1 Day Ago Rx ~02/01/17 Review of Systems Stated complaint: CHEST PAIN Other details as noted in HPI Comment: All other systems reviewed and negative Other: Constitutional: No fevers chills or weight loss Eyes: No eye pain visual changes or discharge ENT: No ear pain or throat pain Neck: Denies pain Respiratory: Denies cough wheezing Cardiovascular: As per HPI GI: Denies abdominal pain, diarrhea : Denies dysuria Musculoskeletal: HPI Skin: Denies rash, lesions, erythema Neurologic: As per HPI Psychiatric: Denies suicidal ideation, hallucinations Medications and Allergies Allergies Allergy/AdvReac Type Severity Reaction Status Date / Time No Known Allergies Allergy Verified 11/11/16 10:46 Home Medications Medication Instructions Recorded Confirmed Last Taken Type Lisinopril [Zestril TAB] 40 mg PO QDAY #30 02/29/16 05/08/17 1 Day Ago Rx ~02/01/17 buPROPion SR [Wellbutrin SR] 100 mg PO BID #60 tablet 02/29/16 05/08/17 1 Day Ago Rx ~02/01/17 Acetaminophen [Acetaminophen TAB] 325 mg PO Q4H PRN #30 tablet 11/13/16 1 Day Ago Rx ~02/01/17 Aspirin EC [Aspirin Enteric Coated 81 mg PO QDAY #30 tablet 11/13/16 05/08/17 1 Day Ago Rx TAB] ~02/01/17 Clopidogrel [Plavix] 75 mg PO QDAY #30 tablet 11/13/16 05/08/17 1 Day Ago Rx ~02/01/17 Metoprolol Tartrate 75 mg PO BID #60 tablet 11/13/16 05/08/17 1 Day Ago Rx ~02/01/17 Pregabalin [Lyrica] 75 mg PO BID capsule 11/13/16 05/08/17 1 Day Ago Rx ~02/01/17 Rosuvastatin Calcium [Crestor] 40 mg PO QHS #30 tablet 11/13/16 05/08/17 1 Day Ago Rx ~02/01/17 Exam - Constitutional Vitals: Temp Pulse Resp BP Pulse Ox 98.3 F 49 L 18 127/86 93 05/08/17 21:39 05/08/17 21:39 05/08/17 21:39 05/08/17 21:39 05/08/17 21:39 General appearance: Present: no acute distress, well-nourished - EENT Eyes: Present: PERRL ENT: hearing intact, clear oral mucosa - Neck Neck: Present: supple, normal ROM - Respiratory Respiratory effort: normal Respiratory: bilateral: CTA - Cardiovascular Heart rate: 70 Rhythm: regular Heart Sounds: Present: S1 & S2. Absent: rub, click - Extremities Extremities: no ischemia, pulses intact, pulses symmetrical, No edema Peripheral Pulses: within normal limits - Abdominal General gastrointestinal: Present: soft, non-tender, non-distended, normal bowel sounds Male genitourinary: Present: normal - Integumentary Integumentary: Present: clear, warm, dry - Musculoskeletal Musculoskeletal: gait normal, strength equal bilaterally - Psychiatric Psychiatric: appropriate mood/affect, intact judgment & insight - Neurologic Neurologic: CNII-XII intact, focal deficits (Left Hemiparesis), moves all extremities, other (Gait -Circumduction gait) Results - Labs CBC & Chem 7: 05/09/17 03:35 05/09/17 03:35 Labs: Laboratory Last Values WBC 9.2 K/mm3 (4.5-11.0) 05/08/17 15:01 RBC 5.23 M/mm3 (3.65-5.03) H 05/08/17 15:01 Hgb 15.3 gm/dl (11.8-15.2) H 05/08/17 15:01 Hct 46.8 % (35.5-45.6) H 05/08/17 15:01 MCV 90 fl (84-94) 05/08/17 15:01 MCH 29 pg (28-32) 05/08/17 15:01 MCHC 33 % (32-34) 05/08/17 15:01 RDW 14.1 % (13.2-15.2) 05/08/17 15:01 Plt Count 178 K/mm3 (140-440) 05/08/17 15:01 Lymph % (Auto) 27.1 % (13.4-35.0) 05/08/17 15:01 [place] % (Auto) 7.8 % (0.0-7.3) H 05/08/17 15:01 Eos % (Auto) 4.1 % (0.0-4.3) 05/08/17 15:01 Baso % (Auto) 0.9 % (0.0-1.8) 05/08/17 15:01 Lymph # 2.5 K/mm3 (1.2-5.4) 05/08/17 15:01 [place] # 0.7 K/mm3 (0.0-0.8) 05/08/17 15:01 Eos # 0.4 K/mm3 (0.0-0.4) 05/08/17 15:01 Baso # 0.1 K/mm3 (0.0-0.1) 05/08/17 15:01 Seg Neutrophils % 60.1 % (40.0-70.0) 05/08/17 15:01 Seg Neutrophils # 5.5 K/mm3 (1.8-7.7) 05/08/17 15:01 PT 13.5 Sec. (12.2-14.9) 05/08/17 15:01 INR 0.98 (0.87-1.13) 05/08/17 15:01 Sodium 138 mmol/L (137-145) 05/08/17 15:01 Potassium 4.2 mmol/L (3.6-5.0) 05/08/17 15:01 Chloride 99.9 mmol/L (98-107) 05/08/17 15:01 Carbon Dioxide 24 mmol/L (22-30) 05/08/17 15:01 Anion Gap 18 mmol/L 05/08/17 15:01 BUN 17 mg/dL (9-20) 05/08/17 15:01 Creatinine 0.9 mg/dL (0.8-1.5) 05/08/17 15:01 Estimated GFR > 60 ml/min 05/08/17 15:01 BUN/Creatinine Ratio 19 % 05/08/17 15:01 Glucose 99 mg/dL (75-100) 05/08/17 15:01 POC Glucose 92 (70-105) 05/08/17 15:01 Calcium 9.3 mg/dL (8.4-10.2) 05/08/17 15:01 Total Creatine Kinase 149 units/L (55-170) 05/08/17 15:01 CK-MB (CK-2) 2.0 ng/mL (0.0-4.0) 05/08/17 15:01 CK-MB (CK-2) Rel Index 1.3 (0-4) 05/08/17 15:01 Troponin T < 0.010 ng/mL (0.00-0.029) 05/08/17 15:01 NT-Pro-B Natriuret Pep 197.9 pg/mL (0-450) 05/08/17 15:01 TSH 0.565 mlU/mL (0.270-4.200) 05/08/17 15:01 Free T4 1.23 ng/dL (0.76-1.46) 05/08/17 15:01 Urine Color Straw (Yellow) 05/08/17 15:24 Urine Turbidity Clear (Clear) 05/08/17 15:24 Urine pH 6.0 (5.0-7.0) 05/08/17 15:24 Ur Specific [place] 1.008 (1.003-1.030) 05/08/17 15:24 Urine Protein <15 mg/dl mg/dL (Negative) 05/08/17 15:24 Urine Glucose (UA) Neg mg/dL (Negative) 05/08/17 15:24 Urine Ketones Neg mg/dL (Negative) 05/08/17 15:24 Urine Blood Neg (Negative) 05/08/17 15:24 Urine Nitrite Neg (Negative) 05/08/17 15:24 Urine Bilirubin Neg (Negative) 05/08/17 15:24 Urine Urobilinogen < 2.0 mg/dL (<2.0) 05/08/17 15:24 Ur Leukocyte Esterase Neg (Negative) 05/08/17 15:24 Urine WBC (Auto) < 1.0 /HPF (0.0-6.0) 05/08/17 15:24 Urine RBC (Auto) 1.0 /HPF (0.0-6.0) 05/08/17 15:24 - Imaging and Cardiology EKG: report reviewed Chest x-ray: report reviewed Assessment and Plan Advance Directives: Yes (Full code) VTE prophylaxis?: Chemical Plan of care discussed with patient/family: Yes - Patient Problems (1) Syncope Current Visit: Yes Status: Acute Qualifiers: Syncope type: unspecified Qualified Code(s): R55 - Syncope and collapse Plan to address problem: Syncope w/u Lexiscan/Echo/CDS (2) History of CVA with residual deficit Current Visit: Yes Status: Chronic Plan to address problem: Cont Plavix (3) CAD (coronary artery disease) Current Visit: No Status: Chronic Qualifiers: Coronary Disease-Associated Artery/Lesion type: [place] artery Associated angina: with unspecified angina Plan to address problem: Cont Plavix (4) HTN (hypertension) Current Visit: Yes Status: Acute Plan to address problem: Cont Antihypertensives (5) HLD (hyperlipidemia) Current Visit: Yes Status: Chronic Qualifiers: Hyperlipidemia type: mixed hyperlipidemia Qualified Code(s): E78.2 - Mixed hyperlipidemia Plan to address problem: Cont Statins (6) Peripheral neuropathy Current Visit: Yes Status: Chronic Qualifiers: Peripheral neuropathy type: polyneuropathy, unspecified Qualified Code(s): G62.9 - Polyneuropathy, unspecified Plan to address problem: Cont Lyrica (7) DVT prophylaxis Current Visit: No Status: Acute Plan to address problem: On Lovenox
[2017-05-09] MEDS ORDERED: MORPHINE IV PRN (01:00)
[2017-05-09] MEDS ORDERED: TYLENOL PO PRN ×2 (01:26→01:28)
[2017-05-09] MEDS ORDERED: AMBIEN PO PRN (01:28)
[2017-05-09] MEDS ORDERED: MILK OF MAGNESIA PO PRN (01:28)
[2017-05-09] MEDS ORDERED: DULCOLAX PR PRN (01:28)
[2017-05-09] MEDS ORDERED: ZOFRAN IV PRN (01:28)
[2017-05-09] MEDS ORDERED: PERCOCET 5/325 PO PRN (01:28)
[2017-05-09] MEDS ORDERED: NACL 0.9% 1000 ML 1,000 ML IV SCH (02:00)
[2017-05-09 04:01] LABS: Basophils % (Auto) 0.8 % (0.0-1.8); Eosinophils % (Auto) 5.1 % (0.0-4.3); Hematocrit 43.5 % (35.5-45.6); Hemoglobin 14.9 gm/dl (11.8-15.2); Mean Corpuscular HGB Conc 34 % (32-34); Mean Corpuscular Hemoglobin 31 pg (28-32); Mean Corpuscular Volume 90 fl (84-94); Platelet Count 160 K/mm3 (140-440); Red Blood Count 4.83 M/mm3 (3.65-5.03); Red Cell Distribution Width 14.1 % (13.2-15.2); White Blood Count 7.5 K/mm3 (4.5-11.0)
[2017-05-09 04:23] LABS: Creatine Kinase MB 1.5 ng/mL (0.0-4.0)
[2017-05-09 04:28] LABS: Alanine Aminotransferase 37 units/L (7-56); Albumin 3.8 g/dL (3.9-5); Albumin/Globulin Ratio 1.4 %; Alkaline Phosphatase 54 units/L (35-129); Anion Gap 17 mmol/L; BUN/Creatinine Ratio 16; Blood Urea Nitrogen 14 mg/dL (9-20); Calcium 8.9 mg/dL (8.4-10.2); Carbon Dioxide 26 mmol/L (22-30); Chloride 99.8 mmol/L (98-107); Glucose 93 mg/dL (75-100); Potassium 4.3 mmol/L (3.6-5.0); Sodium 138 mmol/L (137-145); Total Protein 6.5 g/dL (6.3-8.2)
[2017-05-09 04:32] LABS: Creatine Kinase 111 units/L (55-170)
[2017-05-09] MEDS: LYRICA PO SCH ×3 (04:59→21:18)
[2017-05-09] MEDS: WELLBUTRIN SR PO SCH ×3 (05:00→21:17)
[2017-05-09 10:02] LABS: Creatine Kinase MB 1.3 ng/mL (0.0-4.0)
[2017-05-09 10:03] LABS: Creatine Kinase 103 units/L (55-170)
--- NOTE | 2017-05-09 10:16 | Consultation ---
History of Present Illness Consult date: 05/09/17 Consult reason: syncope History of present illness: 51 year old male presenting after an episode of syncope immediately after he stood up from a supine position in bed. He remembers waking up with profuse sweating. He complains of diffuse body aches and pains. ECG is showing no ischemic changes, troponin is negative. CTA chest is pertinent for a 4.8x4.5 cm ascending aortic aneurysm. Patient is compliant with dual antiplatelet therapy. Past History Past Medical History: CAD, hypertension, hyperlipidemia Past Surgical History: PTCA Social history: smoking Family history: hypertension Medications and Allergies Allergies Allergy/AdvReac Type Severity Reaction Status Date / Time No Known Allergies Allergy Verified 11/11/16 10:46 Home Medications Medication Instructions Recorded Confirmed Last Taken Type Lisinopril [Zestril TAB] 40 mg PO QDAY #30 02/29/16 05/08/17 1 Day Ago Rx ~02/01/17 buPROPion SR [Wellbutrin SR] 100 mg PO BID #60 tablet 02/29/16 05/08/17 1 Day Ago Rx ~02/01/17 Acetaminophen [Acetaminophen TAB] 325 mg PO Q4H PRN #30 tablet 11/13/16 1 Day Ago Rx ~02/01/17 Aspirin EC [Aspirin Enteric Coated 81 mg PO QDAY #30 tablet 11/13/16 05/08/17 1 Day Ago Rx TAB] ~02/01/17 Clopidogrel [Plavix] 75 mg PO QDAY #30 tablet 11/13/16 05/08/17 1 Day Ago Rx ~02/01/17 Metoprolol Tartrate 75 mg PO BID #60 tablet 11/13/16 05/08/17 1 Day Ago Rx ~02/01/17 Pregabalin [Lyrica] 75 mg PO BID capsule 11/13/16 05/08/17 1 Day Ago Rx ~02/01/17 Rosuvastatin Calcium [Crestor] 40 mg PO QHS #30 tablet 11/13/16 05/08/17 1 Day Ago Rx ~02/01/17 Active Meds: Active Medications Acetaminophen (Tylenol) 325 mg PO Q4H PRN PRN Reason: Pain MILD(1-3)/Fever >100.5/BLANK Acetaminophen (Tylenol) 650 mg PO Q4H PRN PRN Reason: Pain MILD(1-3)/Fever >100.5/BLANK Aspirin (Halfprin Ec) 81 mg PO QDAY [facility] Atorvastatin Calcium (Lipitor) 40 mg PO QHS [facility] Bisacodyl (Dulcolax) 10 mg [place] QDAY PRN PRN Reason: Constipation unrelieved by MOM Bupropion HCl (Wellbutrin Sr) 100 mg PO BID [facility] Last Admin: 05/09/17 05:00 Dose: 100 mg Clopidogrel Bisulfate (Plavix) 75 mg PO QDAY [facility] Famotidine (Pepcid) 20 mg PO BID [facility] Sodium Chloride (Nacl 0.9% 1000 Ml) 1,000 mls @ 100 mls/hr IV DIRECT [facility] Influenza Virus Vaccine Quadrival (Fluarix Quad [id number](36 Mos+) 0.5 ml IM .ONCE ONE Stop: 05/09/17 12:01 Lisinopril (Zestril) 40 mg PO QDAY [facility] Magnesium Hydroxide (Milk Of Magnesia) 30 ml PO Q4H PRN PRN Reason: Constipation Metoprolol Tartrate (Lopressor) 75 mg PO BID [facility] Morphine Sulfate (Morphine) 1 mg IV Q4H PRN PRN Reason: Pain, Moderate (4-6) Last Admin: 05/09/17 01:07 Dose: 1 mg Morphine Sulfate (Morphine) 2 mg IV Q4H PRN PRN Reason: Pain, Moderate (4-6) Ondansetron HCl (Zofran) 4 mg IV Q8H PRN PRN Reason: N/V unrelieved by Reglan Oxycodone/Acetaminophen (Percocet 5/325) 1 tab PO Q6H PRN PRN Reason: Pain, Moderate (4-6) Pneumococcal Polyvalent Vaccine (Pneumovax 23) 0.5 ml IM .ONCE ONE Stop: 05/09/17 12:01 Pregabalin (Lyrica) 75 mg PO BID [facility] Last Admin: 05/09/17 04:59 Dose: 75 mg Zolpidem Tartrate (Ambien) 5 mg PO QHS PRN PRN Reason: Insomnia Review of Systems All systems: negative Physical Examination Vital Signs Temp Pulse Resp BP Pulse Ox 98 F 54 L 16 162/110 96 05/08/17 14:36 05/08/17 14:36 05/08/17 14:36 05/08/17 14:36 05/08/17 14:36 General appearance: no acute distress HEENT: Positive: PERRL Neck: Positive: neck supple Cardiac: Positive: Reg Rate and Rhythm Lungs: Positive: Normal Exam Abdomen: Positive: Soft Extremities: Present: +1 Edema. Absent: edema Results 05/09/17 03:35 05/09/17 03:35 Cardiac Enzymes 05/08/17 05/09/17 05/09/17 Range/Units 15:01 03:35 03:35 AST 27 (5-40) units/L CK-MB (CK-2) 2.0 1.5 (0.0-4.0) ng/mL 05/09/17 Range/Units 08:59 AST (5-40) units/L CK-MB (CK-2) 1.3 (0.0-4.0) ng/mL Coagulation 05/08/17 Range/Units 15:01 PT 13.5 (12.2-14.9) Sec. INR 0.98 (0.87-1.13) CBC 05/08/17 05/09/17 Range/Units 15:01 03:35 WBC 9.2 7.5 (4.5-11.0) K/mm3 RBC 5.23 H 4.83 (3.65-5.03) M/mm3 Hgb 15.3 H 14.9 (11.8-15.2) gm/dl Hct 46.8 H 43.5 (35.5-45.6) % Plt Count 178 160 (140-440) K/mm3 Lymph # 2.5 3.1 (1.2-5.4) K/mm3 [place] # 0.7 0.6 (0.0-0.8) K/mm3 Eos # 0.4 0.4 (0.0-0.4) K/mm3 Baso # 0.1 0.1 (0.0-0.1) K/mm3 Comprehensive Metabolic Panel 05/08/17 05/09/17 Range/Units 15:01 03:35 Sodium 138 138 (137-145) mmol/L Potassium 4.2 4.3 (3.6-5.0) mmol/L Chloride 99.9 99.8 (98-107) mmol/L Carbon Dioxide 24 26 (22-30) mmol/L BUN 17 14 (9-20) mg/dL Creatinine 0.9 0.9 (0.8-1.5) mg/dL Glucose 99 93 (75-100) mg/dL Calcium 9.3 8.9 (8.4-10.2) mg/dL AST 27 (5-40) units/L ALT 37 (7-56) units/L Alkaline Phosphatase 54 (35-129) units/L Total Protein 6.5 (6.3-8.2) g/dL Albumin 3.8 L (3.9-5) g/dL EKG interpretations - Telemetry EKG Rhythm: Sinus Rhythm Assessment and Plan Syncope - vasovagal CT head negative CAD s/p PCI 01/2017 to RCA with SHARAN Normal LVEF 01/2017 Normal MPI 01/2017 Sinus bradycardia Ascending aortic aneurysm 4.8 * 4.5 cm this admission 4.1 cm in 2016 History of remote CVA Recommendations: No need for further cardiac work-up Continue current medications (metoprolol, lisinopril, plavix, asa and lipitor) Decrease metoprolol to 50 mg po bid due to underlying bradycardia Outpatient follow-up of the ascending aortic aneurysm recommended
[2017-05-09] MEDS: LOPRESSOR PO SCH ×2 (10:29→21:19)
[2017-05-09] MEDS: PLAVIX PO SCH (10:29)
[2017-05-09] MEDS: HALFPRIN EC PO SCH (10:29)
[2017-05-09] MEDS: PEPCID PO SCH ×2 (10:29→21:17)
[2017-05-09] MEDS: ZESTRIL PO SCH (10:30)
[2017-05-09] MEDS ORDERED: PNEUMOVAX 23 IM ONE (12:00)
[2017-05-09] MEDS ORDERED: Fluarix Quad 2017-2018(36 MOS+ IM ONE (12:00)
--- NOTE | 2017-05-09 20:23 | Progress Note ---
Assessment and Plan Assessment and plan: --Syncope; vasovagal/innominate dysfunction CT head without contrast is negative Fall precautions, no new episodes of syncope, cardiology evaluated the patient --Chest pain; patient had recent negative stress test Stress test ordered 2 days discontinued, continue current management --CAD status post PCI; continue current cardiac medications --Sinus bradycardia/symptomatic bradycardia; supportive care Decrease metoprolol dose, --Ascending aortic aneurysm; increasing exercise, outpatient cardiology evaluation --DVT prophylaxis; Lovenox Cardiology evaluation and recommendations noted and appreciated Possibly discharge home tomorrow if stable History Interval history: Patient seen and examined medical records reviewed Admitted with syncope and chest pain Scheduled for stress test, which was counseled ,as the patient had a recent negative stress test Patient has bradycardia heart rate in 40s and 50s No new Episodes of syncope Hospitalist Physical - Constitutional Vitals: Temp Pulse Resp BP Pulse Ox 97.9 F 59 L 20 110/69 95 05/09/17 12:46 05/09/17 17:01 05/09/17 13:42 05/09/17 17:01 05/09/17 17:01 General appearance: Present: no acute distress, well-nourished, obese - EENT Eyes: Present: PERRL, EOM intact - Neck Neck: Present: supple, normal ROM - Respiratory Respiratory effort: normal Respiratory: bilateral: diminished, negative: rales, rhonchi, wheezing - Cardiovascular Rhythm: regular Heart Sounds: Present: S1 & S2 - Extremities Extremities: no ischemia, No edema Peripheral Pulses: within normal limits - Abdominal General gastrointestinal: soft, non-tender, non-distended, normal bowel sounds - Integumentary Integumentary: Present: clear, warm - Psychiatric Psychiatric: appropriate mood/affect, cooperative - Neurologic Neurologic: CNII-XII intact, moves all extremities Results - Labs CBC & Chem 7: 05/09/17 03:35 05/09/17 03:35 Labs: Laboratory Last Values WBC 7.5 K/mm3 (4.5-11.0) 05/09/17 03:35 RBC 4.83 M/mm3 (3.65-5.03) 05/09/17 03:35 Hgb 14.9 gm/dl (11.8-15.2) 05/09/17 03:35 Hct 43.5 % (35.5-45.6) 05/09/17 03:35 MCV 90 fl (84-94) 05/09/17 03:35 MCH 31 pg (28-32) 05/09/17 03:35 MCHC 34 % (32-34) 05/09/17 03:35 RDW 14.1 % (13.2-15.2) 05/09/17 03:35 Plt Count 160 K/mm3 (140-440) 05/09/17 03:35 Lymph % (Auto) 42.1 % (13.4-35.0) H 05/09/17 03:35 [place] % (Auto) 8.4 % (0.0-7.3) H 05/09/17 03:35 Eos % (Auto) 5.1 % (0.0-4.3) H 05/09/17 03:35 Baso % (Auto) 0.8 % (0.0-1.8) 05/09/17 03:35 Lymph # 3.1 K/mm3 (1.2-5.4) 05/09/17 03:35 [place] # 0.6 K/mm3 (0.0-0.8) 05/09/17 03:35 Eos # 0.4 K/mm3 (0.0-0.4) 05/09/17 03:35 Baso # 0.1 K/mm3 (0.0-0.1) 05/09/17 03:35 Seg Neutrophils % 43.6 % (40.0-70.0) 05/09/17 03:35 Seg Neutrophils # 3.2 K/mm3 (1.8-7.7) 05/09/17 03:35 PT 13.5 Sec. (12.2-14.9) 05/08/17 15:01 INR 0.98 (0.87-1.13) 05/08/17 15:01 Sodium 138 mmol/L (137-145) 05/09/17 03:35 Potassium 4.3 mmol/L (3.6-5.0) 05/09/17 03:35 Chloride 99.8 mmol/L (98-107) 05/09/17 03:35 Carbon Dioxide 26 mmol/L (22-30) 05/09/17 03:35 Anion Gap 17 mmol/L 05/09/17 03:35 BUN 14 mg/dL (9-20) 05/09/17 03:35 Creatinine 0.9 mg/dL (0.8-1.5) 05/09/17 03:35 Estimated GFR > 60 ml/min 05/09/17 03:35 BUN/Creatinine Ratio 16 % 05/09/17 03:35 Glucose 93 mg/dL (75-100) 05/09/17 03:35 POC Glucose 92 (70-105) 05/08/17 15:01 Hemoglobin A1c 6.0 % (4-6) 05/09/17 03:35 Calcium 8.9 mg/dL (8.4-10.2) 05/09/17 03:35 Total Bilirubin 0.20 mg/dL (0.1-1.2) 05/09/17 03:35 AST 27 units/L (5-40) 05/09/17 03:35 ALT 37 units/L (7-56) 05/09/17 03:35 Alkaline Phosphatase 54 units/L (35-129) 05/09/17 03:35 Total Creatine Kinase 103 units/L (55-170) 05/09/17 08:59 CK-MB (CK-2) 1.3 ng/mL (0.0-4.0) 05/09/17 08:59 CK-MB (CK-2) Rel Index 1.2 (0-4) 05/09/17 08:59 Troponin T < 0.010 ng/mL (0.00-0.029) 05/09/17 08:59 NT-Pro-B Natriuret Pep 197.9 pg/mL (0-450) 05/08/17 15:01 Total Protein 6.5 g/dL (6.3-8.2) 05/09/17 03:35 Albumin 3.8 g/dL (3.9-5) L 05/09/17 03:35 Albumin/Globulin Ratio 1.4 % 05/09/17 03:35 TSH 0.565 mlU/mL (0.270-4.200) 05/08/17 15:01 Free T4 1.23 ng/dL (0.76-1.46) 05/08/17 15:01 Urine Color Straw (Yellow) 05/08/17 15:24 Urine Turbidity Clear (Clear) 05/08/17 15:24 Urine pH 6.0 (5.0-7.0) 05/08/17 15:24 Ur Specific [place] 1.008 (1.003-1.030) 05/08/17 15:24 Urine Protein <15 mg/dl mg/dL (Negative) 05/08/17 15:24 Urine Glucose (UA) Neg mg/dL (Negative) 05/08/17 15:24 Urine Ketones Neg mg/dL (Negative) 05/08/17 15:24 Urine Blood Neg (Negative) 05/08/17 15:24 Urine Nitrite Neg (Negative) 05/08/17 15:24 Urine Bilirubin Neg (Negative) 05/08/17 15:24 Urine Urobilinogen < 2.0 mg/dL (<2.0) 05/08/17 15:24 Ur Leukocyte Esterase Neg (Negative) 05/08/17 15:24 Urine WBC (Auto) < 1.0 /HPF (0.0-6.0) 05/08/17 15:24 Urine RBC (Auto) 1.0 /HPF (0.0-6.0) 05/08/17 15:24
[2017-05-09] MEDS: MORPHINE IV PRN (21:18)
[2017-05-09] MEDS ORDERED: LOVENOX SUB-Q SCH (22:00)
[2017-05-10] MEDS: MORPHINE IV PRN ×2 (04:16→10:31)
[2017-05-10 07:18] LABS: Basophils % (Auto) 0.6 % (0.0-1.8); Eosinophils % (Auto) 3.9 % (0.0-4.3); Hematocrit 43.8 % (35.5-45.6); Hemoglobin 14.8 gm/dl (11.8-15.2); Mean Corpuscular HGB Conc 34 % (32-34); Mean Corpuscular Hemoglobin 31 pg (28-32); Mean Corpuscular Volume 90 fl (84-94); Platelet Count 140 K/mm3 (140-440); Red Blood Count 4.86 M/mm3 (3.65-5.03); Red Cell Distribution Width 14.2 % (13.2-15.2); White Blood Count 8.3 K/mm3 (4.5-11.0)
[2017-05-10 07:22] LABS: Alanine Aminotransferase 31 units/L (7-56); Albumin 3.6 g/dL (3.9-5); Albumin/Globulin Ratio 1.3 %; Alkaline Phosphatase 49 units/L (35-129); Anion Gap 14 mmol/L; BUN/Creatinine Ratio 14; Blood Urea Nitrogen 15 mg/dL (9-20); Calcium 8.8 mg/dL (8.4-10.2); Carbon Dioxide 27 mmol/L (22-30); Chloride 102.8 mmol/L (98-107); Glucose 109 mg/dL (75-100); Potassium 4.2 mmol/L (3.6-5.0); Sodium 140 mmol/L (137-145); Total Protein 6.3 g/dL (6.3-8.2)
[2017-05-10 09:14] VITALS: BP 109/69
[2017-05-10] MEDS: LYRICA PO SCH (10:30)
[2017-05-10] MEDS: HALFPRIN EC PO SCH (10:30)
[2017-05-10] MEDS: WELLBUTRIN SR PO SCH (10:30)
[2017-05-10] MEDS: ZESTRIL PO SCH (10:30)
[2017-05-10] MEDS: LOPRESSOR PO SCH (10:30)
[2017-05-10] MEDS: PLAVIX PO SCH (10:30)
[2017-05-10] MEDS: PEPCID PO SCH (10:30)
--- NOTE | 2017-05-10 10:40 | Progress Note ---
Assessment and Plan Syncope - vasovagal CT head negative CAD s/p PCI 01/2017 to RCA with SHARAN Normal LVEF 01/2017 Normal MPI 01/2017 Sinus bradycardia Ascending aortic aneurysm 4.8 * 4.5 cm this admission 4.1 cm in 2016 History of remote CVA Recommendations: No need for further cardiac work-up Continue current medications (metoprolol, lisinopril, plavix, asa and lipitor) Outpatient follow-up of the ascending aortic aneurysm recommended Subjective Date of service: 05/10/17 Principal diagnosis: Syncope Interval history: No cardiac events overnight Still complains of diffuse body aches Objective Vital Signs Temp Pulse Resp Resp BP BP Pulse Ox 05/10/17 08:42 98.2 F 60 16 109/69 96 05/10/17 04:46 18 05/10/17 04:32 98.2 F 56 L 20 101/64 05/10/17 04:16 18 05/10/17 03:47 51 L 95 05/10/17 00:15 98.4 F 56 L 20 92/59 94 05/10/17 00:11 54 L 94 05/10/17 00:10 57 L 20 92/59 94 05/09/17 22:00 18 05/09/17 21:48 18 05/09/17 21:19 60 101/68 05/09/17 21:18 18 05/09/17 20:50 18 05/09/17 20:26 98.4 F 53 L 20 101/68 97 05/09/17 19:25 50 L 05/09/17 17:01 59 L 110/69 95 05/09/17 13:42 20 05/09/17 13:36 20 103/60 05/09/17 12:46 97.9 F 53 L 18 103/65 96 05/09/17 12:26 48 L - Physical Examination HEENT: Positive: PERRL Neck: Positive: neck supple Cardiac: Positive: Reg Rate and Rhythm Lungs: Positive: Normal Exam Neuro: Positive: Grossly Intact Abdomen: Positive: Soft Extremities: Present: +1 Edema. Absent: edema - Labs and Meds Cardiac Enzymes 05/10/17 Range/Units 05:58 AST 21 (5-40) units/L CBC 05/10/17 Range/Units 05:58 WBC 8.3 (4.5-11.0) K/mm3 RBC 4.86 (3.65-5.03) M/mm3 Hgb 14.8 (11.8-15.2) gm/dl Hct 43.8 (35.5-45.6) % Plt Count 140 (140-440) K/mm3 Lymph # 2.2 (1.2-5.4) K/mm3 [place] # 0.6 (0.0-0.8) K/mm3 Eos # 0.3 (0.0-0.4) K/mm3 Baso # 0.1 (0.0-0.1) K/mm3 Comprehensive Metabolic Panel 05/10/17 Range/Units 05:58 Sodium 140 (137-145) mmol/L Potassium 4.2 (3.6-5.0) mmol/L Chloride 102.8 (98-107) mmol/L Carbon Dioxide 27 (22-30) mmol/L BUN 15 (9-20) mg/dL Creatinine 1.1 (0.8-1.5) mg/dL Glucose 109 H (75-100) mg/dL Calcium 8.8 (8.4-10.2) mg/dL AST 21 (5-40) units/L ALT 31 (7-56) units/L Alkaline Phosphatase 49 (35-129) units/L Total Protein 6.3 (6.3-8.2) g/dL Albumin 3.6 L (3.9-5) g/dL - Imaging and Cardiology EKG: report reviewed
--- NOTE | 2017-05-10 14:06 | Discharge Summary ---
Providers - Providers Date of Admission: 05/08/17 19:06 Date of discharge: 05/10/17 Attending physician: KASSIE SAVAGE Primary care physician: LISA LOPEZ Hospitalization Reason for admission: Syncopal episode Condition: Stable Pertinent studies: CT abdomen : normal CT chest : ascending aortic aneurysm CXR CT head Carotid doppler Hospital course: Patient was admitted with syncope,,Fall precautions observed Syncope w/u was negative,patient was bradycardic, beta blockers dose decreased Evaluated by ultrasound supervisor, symptoms improved Today patient comfortable,no new complaints,vital signs stable Physical exam is unremarkable. Patient is stable at discharge Discharge Diagnosis: --Syncope; vasovagal/autonomic dysfunction CT head without contrast is negative, Fall precautions,cardiology evaluated the patient --Chest pain; patient had recent negative stress test --CAD status post PCI; continue current cardiac medications --Sinus bradycardia/symptomatic bradycardia; metoprolol dose decreased --Ascending aortic aneurysm: cardiology evaluated,outpatient work up Disposition: TO HOME OR SELFCARE Time spent for discharge: 33 min Core Measure Documentation - Palliative Care Palliative Care/ Comfort Measures: Not Applicable - Core Measures Any of the following diagnoses?: none Exam - Constitutional Vitals: Temp Pulse Resp BP Pulse Ox 98.2 F 60 16 109/69 96 05/10/17 08:42 05/10/17 08:42 05/10/17 08:42 05/10/17 08:42 05/10/17 08:42 General appearance: Present: no acute distress, well-nourished - EENT Eyes: Present: PERRL, EOM intact - Neck Neck: Present: supple, normal ROM - Respiratory Respiratory effort: normal Respiratory: negative: rales, rhonchi, wheezing - Cardiovascular Rhythm: regular Heart Sounds: Present: S1 & S2 - Extremities Extremities: no ischemia, No edema - Abdominal General gastrointestinal: Present: soft, non-tender, non-distended, normal bowel sounds - Integumentary Integumentary: Present: clear, warm - Musculoskeletal Musculoskeletal: strength equal bilaterally - Psychiatric Psychiatric: appropriate mood/affect, cooperative - Neurologic Neurologic: CNII-XII intact, moves all extremities Plan Activity: advance as tolerated Diet: low salt Follow up with: LISA LOPEZ MD [Primary Care Provider] - 7 Days KEMI MIDDLETON MD [Staff Physician] - 7 Days
--- NOTE | 2017-05-18 13:37 | Vascular Lab Report ---
CAROTID DUPLEX STUDY: RIGHT PSVEDV CCA PROX:[id number] CCA [id number] ICA PROX:4514 ICA MID:5224 ICA DIST:[id number] ECA: [id number] VERT: 34 7 LEFT PSVEDV CCA PROX:[id number] CCA DIST:9020 ICA PROX:6723 ICA MID:5821 ICA DIST:5215 ECA: [id number] VERT: 49 10 REASON FOR EXAM: Syncope. COMMENTS ON THE RIGHT: Doppler frequency analysis is consistent with 16 to 49 percent diameter reduction of the internal carotid artery. Minimal amount of plaque is seen. The common carotid artery is patent. The external carotid artery is patent. The vertebral artery has antegrade flow. COMMENTS ON THE LEFT: Doppler frequency analysis is consistent with 16 to 49 percent diameter reduction of the internal carotid artery. Minimal amount of plaque is seen. The common carotid artery is patent. The external carotid artery is patent. The vertebral artery has antegrade flow. IMPRESSION: Less than 50% diameter reduction in the internal carotid arteries bilaterally. Consider repeat carotid artery duplex in 12 months.
== END 2017-05-10 15:52 | disposition home or self-care (01) | DRG 312 ==
LOC: ED 14:03 → 4A 19:06
PROVIDERS: ADMIT Internal Medicine; ATTEND Internal Medicine
PROC: 3E0234Z Introduction of Serum, Toxoid and Vaccine into Muscle, Percutaneous Approach (ICD-10-PCS; principal; 2017-05-09)
DX: R55 Syncope and collapse (principal); I69.354 Hemiplegia and hemiparesis following cerebral infarction affecting left non-dominant side; R00.1 Bradycardia, unspecified; R07.89 Other chest pain; I25.10 Atherosclerotic heart disease of native coronary artery without angina pectoris; I71.2 Thoracic aortic aneurysm, without rupture; I10 Essential (primary) hypertension; E78.5 Hyperlipidemia, unspecified; G62.9 Polyneuropathy, unspecified; G89.29 Other chronic pain; I50.9 Heart failure, unspecified; I25.2 Old myocardial infarction; Z87.891 Personal history of nicotine dependence; Z95.5 Presence of coronary angioplasty implant and graft; Z82.49 Family history of ischemic heart disease and other diseases of the circulatory system; Z23 Encounter for immunization; Z79.82 Long term (current) use of aspirin; Z79.899 Other long term (current) drug therapy
CPT/HCPCS: 36415; 70450; 71275; 74174; 80048; 80053; 81001; 82550; 82553; 82962; 83036; 83880; 84439; 84443; 84484; 85025; 85610; 90686; 90732; 93005; 93010; 93880; 96374; 96375; 96376; A9270-GY; J1170; J1650; J2270; J2405; Q9967

== ENCOUNTER 2018-01-18 15:44 | Emergency (ER) | payer MEDICARE ==
[2018-01-18] MEDS ORDERED: NACL 0.9% 1000 ML 1,000 ML IV ONE (16:57)
[2018-01-18] MEDS ORDERED: ASPIRIN PO ONE (17:15)
[2018-01-18 17:35] LABS: Basophils % (Auto) 0.3 % (0.0-1.8); Eosinophils # (Auto) 0.2 K/mm3 (0.0-0.4); Eosinophils % (Auto) 1.8 % (0.0-4.3); Hematocrit 44.5 % (35.5-45.6); Hemoglobin 15.1 gm/dl (11.8-15.2); Lymphocytes # (Auto) 0.9 K/mm3 (1.2-5.4); Lymphocytes % (Auto) 6.9 % (13.4-35.0); Mean Corpuscular HGB Conc 34 % (32-34); Mean Corpuscular Hemoglobin 31 pg (28-32); Mean Corpuscular Volume 90 fl (84-94); Monocytes # (Auto) 0.9 K/mm3 (0.0-0.8); Monocytes % (Auto) 6.7 % (0.0-7.3); Platelet Count 168 K/mm3 (140-440); Red Blood Count 4.92 M/mm3 (3.65-5.03); Red Cell Distribution Width 14.6 % (13.2-15.2)
[2018-01-18 17:55] LABS: Alanine Aminotransferase 73 units/L (7-56); Albumin 4.1 g/dL (3.9-5); BUN/Creatinine Ratio 10; Blood Urea Nitrogen 9 mg/dL (9-20); Calcium 9.4 mg/dL (8.4-10.2); Hemolysis Index 3; Lipase 36 units/L (13-60)
[2018-01-18] MEDS ORDERED: ZOFRAN IV ONE (19:48)
[2018-01-18] MEDS ORDERED: MORPHINE IV ONE (19:48)
--- NOTE | 2018-01-18 19:51 | Emergency Department Report ---
HPI - General Chief Complaint: Abdominal Pain Time Seen by Provider: 01/18/18 19:44 - HPI HPI: 52-year-old male presents to the emergency department via EMS with complaint of a 4 day history of generalized abdominal pain, nausea and vomiting and diarrhea. He tried some Pepto-Bismol for his symptoms without any relief. Currently he says his abdominal pain is 10 out of 10 in intensity. He has a past medical history of CHF, CVA with left-sided weakness, coronary artery disease with VA 2, hypertension, 2 cardiac stents, aortic arch aneurysm. Patient says that he goes to 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 No recent travel or sick contacts at home. ED Past Medical Hx - Past Medical History Previous Medical History?: Yes Hx Hypertension: Yes Hx CVA: Yes (left side weakness) Hx Heart Attack/AMI: Yes (x2) Hx Congestive Heart Failure: Yes Hx Diabetes: No Hx Asthma: No Hx COPD: No Additional medical history: [place] -- stents x2 2012; stroke x2 2012. aortic arch aneurysym - evaluated yearly by CT, last done 2014 - Surgical History Additional Surgical History: Cardiac stents x2 - Social History Smoking Status: Former Smoker Substance Use Type: None - Medications Home Medications: Home Medications Medication Instructions Recorded Confirmed Last Taken Type Lisinopril [Zestril TAB] 40 mg PO QDAY #30 02/29/16 11/14/17 1 Day Ago Rx ~02/01/17 buPROPion SR [Wellbutrin SR] 100 mg PO BID #60 tablet 02/29/16 11/14/17 1 Day Ago Rx ~02/01/17 Acetaminophen [Acetaminophen TAB] 325 mg PO Q4H PRN #30 tablet 11/13/16 1 Day Ago Rx ~02/01/17 Aspirin EC [Aspirin Enteric Coated 81 mg PO QDAY #30 tablet 11/13/16 11/14/17 1 Day Ago Rx TAB] ~02/01/17 Clopidogrel [Plavix] 75 mg PO QDAY #30 tablet 11/13/16 11/14/17 1 Day Ago Rx ~02/01/17 Metoprolol Tartrate 75 mg PO BID #60 tablet 11/13/16 11/14/17 1 Day Ago Rx ~02/01/17 Pregabalin [Lyrica] 75 mg PO BID capsule 11/13/16 11/14/17 1 Day Ago Rx ~02/01/17 Rosuvastatin Calcium [Crestor] 40 mg PO QHS #30 tablet 11/13/16 11/14/17 1 Day Ago Rx ~02/01/17 Ciprofloxacin HCl [Cipro] 500 mg PO BID #20 tablet 01/19/18 Unknown Rx HYDROcodone/APAP 5-325 [[place] 1 each PO Q6HR PRN #12 tablet 01/19/18 Unknown Rx 5/325] metroNIDAZOLE [Flagyl] 500 mg PO Q8HR #21 tablet 01/19/18 Unknown Rx ED Review of Systems ROS: Stated complaint: NAUSE/VOMITING/DIARRHEA Other details as noted in HPI Comment: All other systems reviewed and negative Constitutional: denies: chills, malaise Eyes: denies: eye pain, eye discharge, vision change ENT: denies: ear pain, throat pain Respiratory: denies: cough, shortness of breath, wheezing Cardiovascular: denies: chest pain, palpitations Gastrointestinal: abdominal pain, nausea, vomiting, diarrhea Genitourinary: denies: urgency, dysuria Musculoskeletal: back pain. denies: joint swelling, arthralgia Skin: denies: rash, lesions Neurological: denies: headache, weakness, paresthesias Physical Exam - Physical Exam Vital Signs: Vital Signs 01/18/18 17:29 Temperature 100.5 F H Pulse Rate 88 Respiratory 20 Rate Blood Pressure 163/106 [Right] O2 Sat by Pulse 97 Oximetry Physical Exam: GENERAL: The patient is well-developed well-nourished. HENT: Normocephalic. Atraumatic. Patient has moist mucous membranes. EYES: Extraocular motions are intact. Pupils equal reactive to light bilaterally. NECK: Supple. Trachea is midline. CHEST/LUNGS: Clear to auscultation. There is no respiratory distress noted. HEART/CARDIOVASCULAR: Regular. There is no tachycardia. There is no murmur. ABDOMEN: Abdomen is soft. There is some generalized tenderness to palpation. No guarding. Patient has normal bowel sounds. There is no abdominal distention. SKIN: Skin is warm and dry. NEURO: The patient is awake, aler. The patient is cooperative. The patient has no focal neurologic deficits. The patient has normal speech. MUSCULOSKELETAL: There is no tenderness or deformity. There is no evidence of acute injury. ED Course Vital Signs 01/18/18 17:29 Temperature 100.5 F H Pulse Rate 88 Respiratory 20 Rate Blood Pressure 163/106 [Right] O2 Sat by Pulse 97 Oximetry ED Medical Decision Making - Lab Data Result diagrams: 01/18/18 17:12 01/18/18 17:12 - EKG Data -: EKG Interpreted by Nd EKG shows normal: sinus rhythm, axis (left axis deviation), intervals, QRS complexes, ST-T waves Rate: normal - EKG Data When compared to previous EKG there are: previous EKG unavailable Interpretation: other (sinus rhythm, normal intervals, left axis deviation, no ST elevation VA) - Radiology Data Radiology results: report reviewed PROCEDURE: CT ABDOMEN PELVIS W CON TECHNIQUE: Computerized axial tomography of the abdomen and pelvis was performed after the IV injection of iodinated nonionic contrast. HISTORY: abd pain COMPARISON: 05/08/2017 FINDINGS: A hypodense lesion measuring 3.4 x 3.5 centimeters is noted in segment 7 of right lobe liver. This lesion demonstrates a near uniform isodense enhancement in the delayed phase. Spleen, pancreas and adrenal glands are within normal limits. Two small cystic lesions measuring 1.1 and 0.6 centimeters are noted in the midpole left kidney consistent with simple cysts.. Otherwise bilateral kidneys demonstrate uniform enhancement without hydronephrosis. Urinary bladder is empty. Aorta is of normal caliber. Trace free fluid is noted in the pelvic cavity. There is no free air. Gallbladder is unremarkable. Small bowel loops are within normal limits. Multiple colonic diverticular noted without evidence of diverticulitis. Mild degree diffuse colonic wall thickening is noted with mild degree pericolonic fat stranding. Appendix is normal. 2.8 x 2.9 centimeter fat containing uncomplicated supraumbilical hernia is noted. Vertebral height is normal. IMPRESSION: 3.5 x 3.4 centimeter lesion of right lobe liver is stable since the prior study and most likely represents a hemangioma. Colonic wall thickening with mild degree pericolonic fat stranding is consistent with the colitis such as pseudomembranous colitis. Transcribed By: [facility] [place] Dictated By: OLEG JAIN Electronically Authenticated By: OLEG JAIN Signed Date/Time: 01/18/182110 - Medical Decision Making The patient presents with a few days of abdominal pain, nausea, vomiting and diarrhea. No rectal bleeding. He has a low-grade fever that resolved with a dose of Toradol. Labs show slightly elevated LFTs and a mild leukocytosis. No left shift. CT of the abdomen and pelvis with IV contrast showed colitis. Does not sound like the patient had recent hospitalization or antibiotic use for a high concern for C. difficile and he was unable to leave a stool sample for testing. However the patient has been placed on Cipro and Flagyl and was given a small amount of pain medication. He says that [facility] who can get him to the pharmacy to fill his prescriptions. He has been given a referral for gastroenterology for the elevated LFTs and his abdominal pains. He has been instructed to return to the emergency department immediately with any worsening symptoms, intractable fever or vomiting, or with any acute distress. He understands and agrees to the plan. - Differential Diagnosis colitis, diverticulitis, malignancy, bowel obstruction Critical Care Time: No Critical care attestation.: If time is entered above; I have spent that time in minutes in the direct care of this critically ill patient, excluding procedure time. ED Disposition Clinical Impression: Colitis, Elevated liver enzymes Hypertension Qualifiers: Hypertension type: essential hypertension Qualified Code(s): I10 - Essential ( primary) hypertension Abdominal pain Qualifiers: Abdominal location: generalized Qualified Code(s): R10.84 - Generalized abdominal pain Diarrhea Qualifiers: Diarrhea type: unspecified type Qualified Code(s): R19.7 - Diarrhea, unspecified Disposition: DC-01 TO HOME OR SELFCARE Is pt being admited?: No Condition: Stable Instructions: Acute Nausea and Vomiting (ED), Acute Diarrhea (ED), Abdominal Pain (ED), Hypertension (ED), Infectious Colitis (ED) Additional Instructions: Please follow up with your primary care physician in the next few days. I have also given you a referral for a local rod puller, Dr. Diamond, to follow up regarding your elevated liver enzymes. The antibiotics as prescribed. Return to the emergency department immediately with any worsening of your symptoms, intractable fever, intractable vomiting or with any acute distress. For now, until you are able to see the rod puller, I would avoid any further Tylenol use. You have been prescribed 2 different antibiotics. One of the antibiotics, Flagyl/metronidazole, has a significant and terrible reaction if it is mixed with alcohol of any quantity. If you chose to mix the antibiotics with alcohol , you can expect to have increased nausea, vomiting, abdominal pain......Do not do it! Prescriptions: Ciprofloxacin HCl [Cipro] 500 mg PO BID #20 tablet HYDROcodone/APAP 5-325 [[place] 5/325] 1 each PO Q6HR PRN #12 tablet PRN Reason: Pain metroNIDAZOLE [Flagyl] 500 mg PO Q8HR #21 tablet Referrals: ANGEL DIAMOND MD [Staff Physician] - 2-3 Days PRIMARY CARE, [Primary Care Provider] - 2-3 Days Time of Disposition: 01:31
--- NOTE | 2018-01-18 21:12 | Cat Scan Report ---
FINAL REPORT PROCEDURE: CT ABDOMEN PELVIS W CON TECHNIQUE: Computerized axial tomography of the abdomen and pelvis was performed after the IV injection of iodinated nonionic contrast. HISTORY: abd pain COMPARISON: 05/08/2017 FINDINGS: A hypodense lesion measuring 3.4 x 3.5 centimeters is noted in segment 7 of right lobe liver. This lesion demonstrates a near uniform isodense enhancement in the delayed phase. Spleen, pancreas and adrenal glands are within normal limits. Two small cystic lesions measuring 1.1 and 0.6 centimeters are noted in the midpole left kidney consistent with simple cysts.. Otherwise bilateral kidneys demonstrate uniform enhancement without hydronephrosis. Urinary bladder is empty. Aorta is of normal caliber. Trace free fluid is noted in the pelvic cavity. There is no free air. Gallbladder is unremarkable. Small bowel loops are within normal limits. Multiple colonic diverticular noted without evidence of diverticulitis. Mild degree diffuse colonic wall thickening is noted with mild degree pericolonic fat stranding. Appendix is normal. 2.8 x 2.9 centimeter fat containing uncomplicated supraumbilical hernia is noted. Vertebral height is normal. IMPRESSION: 3.5 x 3.4 centimeter lesion of right lobe liver is stable since the prior study and most likely represents a hemangioma. Colonic wall thickening with mild degree pericolonic fat stranding is consistent with the colitis such as pseudomembranous colitis.
[2018-01-18] MEDS ORDERED: LEVAQUIN 750MG/150ML 750 MG/150 ML BAG IV ONE (21:21)
[2018-01-18] MEDS ORDERED: FLAGYL PO ONE (21:21)
[2018-01-18] MEDS ORDERED: TORADOL IV ONE (21:23)
[2018-01-18 21:39] LABS: Bilirubin,Urine NEG (Negative); Blood,Urine MOD (Negative); Color,Urine Yellow (Yellow); Mucus,Urine FEW /HPF; Protein,Urine <15 mg/dL mg/dL (Negative); Urobilinogen,Urine < 2.0 mg/dL (<2.0); WBC,Urine < 1.0 /HPF (0.0-6.0)
[2018-01-19] MEDS ORDERED: DILAUDID IV ONE (00:51)
[2018-01-19 02:37] VITALS: BP 161/89
== END 2018-01-19 02:37 | disposition home or self-care (01) ==
LOC: ED 15:44
DX: K52.9 Noninfective gastroenteritis and colitis, unspecified (principal); R74.8 Abnormal levels of other serum enzymes; I10 Essential (primary) hypertension; I11.0 Hypertensive heart disease with heart failure; I50.9 Heart failure, unspecified; I25.2 Old myocardial infarction; Z86.73 Personal history of transient ischemic attack (TIA), and cerebral infarction without residual deficits; Z95.818 Presence of other cardiac implants and grafts; Z87.891 Personal history of nicotine dependence; Z79.899 Other long term (current) drug therapy
CPT/HCPCS: 36415; 74177; 80053; 81001; 83690; 84484; 85025; 93005; 93010; 96365; 96366; 96375; 99285; J1170; J1885; J1956; J2270; J2405; Q9967

== ENCOUNTER 2018-02-09 10:14 | Emergency (ER) | payer MEDICARE ==
[2018-02-09 10:56] LABS: Hematocrit 44.8 % (35.5-45.6); Hemoglobin 15.1 gm/dl (11.8-15.2); Mean Corpuscular HGB Conc 34 % (32-34); Mean Corpuscular Hemoglobin 31 pg (28-32); Mean Corpuscular Volume 92 fl (84-94); Platelet Count 190 K/mm3 (140-440); Red Blood Count 4.86 M/mm3 (3.65-5.03); Red Cell Distribution Width 14.8 % (13.2-15.2)
[2018-02-09 11:21] LABS: Alanine Aminotransferase 17 units/L (7-56); Albumin 4.2 g/dL (3.9-5); BUN/Creatinine Ratio 9; Blood Urea Nitrogen 11 mg/dL (9-20); Calcium 9.7 mg/dL (8.4-10.2); Hemolysis Index 18
--- NOTE | 2018-02-09 12:02 | Emergency Department Report ---
Abscess Boil HPI - HPI Chief Complaint: Skin/Abscess/Foreign Body Stated Complaint: abscess of right arm and buttock Time Seen by Provider: 02/09/18 11:44 Duration: >1 Week (2 weeks) Location: Upper Extremity (right arm pit) Severity: Severe History: Yes Pain, No Fever, No Purulent Drainage, No Numbness, No Foreign Body , No Previous History, No Insect Bite HPI: This is a 52-year-old male presents with painful abscesses under right arm and on right buttock for 3 days. Patient reports pain is 10 out of 10 on pain scale worse with touch or movement. Patient states he was discharged from emergency room 2 weeks ago and started on antibiotic for diarrhea and diverticulitis. Patient states he completed antibiotics about 2 days ago abscess continues to increase in size and pain. Patient states there were some drainage to one of the abscess under right arm. Patient denies fever , insect bite, chest pain, body aches. Home Medications: Previous Rx's Medication Instructions Recorded Last Taken Type Lisinopril [Zestril TAB] 40 mg PO QDAY #30 02/29/16 1 Day Ago Rx ~02/01/17 buPROPion SR [Wellbutrin SR] 100 mg PO BID #60 tablet 02/29/16 1 Day Ago Rx ~02/01/17 Acetaminophen [Acetaminophen TAB] 325 mg PO Q4H PRN #30 tablet 11/13/16 1 Day Ago Rx ~02/01/17 Aspirin EC [Aspirin Enteric Coated 81 mg PO QDAY #30 tablet 11/13/16 1 Day Ago Rx TAB] ~02/01/17 Clopidogrel [Plavix] 75 mg PO QDAY #30 tablet 11/13/16 1 Day Ago Rx ~02/01/17 Metoprolol Tartrate 75 mg PO BID #60 tablet 11/13/16 1 Day Ago Rx ~02/01/17 Pregabalin [Lyrica] 75 mg PO BID capsule 11/13/16 1 Day Ago Rx ~02/01/17 Rosuvastatin Calcium [Crestor] 40 mg PO QHS #30 tablet 11/13/16 1 Day Ago Rx ~02/01/17 Ciprofloxacin HCl [Cipro] 500 mg PO BID #20 tablet 01/19/18 Unknown Rx HYDROcodone/APAP 5-325 [[place] 1 each PO Q6HR PRN #12 tablet 01/19/18 Unknown Rx 5/325] metroNIDAZOLE [Flagyl] 500 mg PO Q8HR #21 tablet 01/19/18 Unknown Rx Acetaminophen/Codeine [Tylenol 1 tab PO Q6H PRN #12 tab 02/09/18 Unknown Rx /Codeine # 3 tab] Sulfamethoxazole/Trimethoprim 1 each PO BID #20 tablet 02/09/18 Unknown Rx [Bactrim DS TAB] Allergies/Adverse Reactions: Allergies Allergy/AdvReac Type Severity Reaction Status Date / Time No Known Allergies Allergy Verified 11/14/17 07:31 ED Review of Systems ROS: Stated complaint: POSS STROKE/HEART FAILURE PATIENT/SOB Other details as noted in HPI Constitutional: denies: chills, fever Respiratory: denies: cough, shortness of breath, wheezing Cardiovascular: denies: chest pain, palpitations Gastrointestinal: denies: abdominal pain, nausea, diarrhea Skin: lesions (multiple abscess to right axilla and right buttock). denies: rash Neurological: denies: headache, weakness, paresthesias Psychiatric: denies: anxiety, depression ED Past Medical Hx - Past Medical History Hx Hypertension: Yes Hx CVA: Yes (left side weakness) Hx Heart Attack/AMI: Yes (x2) Hx Congestive Heart Failure: Yes Hx Diabetes: No Hx Asthma: No Hx COPD: No Additional medical history: [place] -- stents x2 2012; stroke x2 2012. aortic arch aneurysym - evaluated yearly by CT, last done 2014 - Surgical History Additional Surgical History: Cardiac stents x2 - Social History Smoking Status: Current Every Day Smoker Substance Use Type: None - Medications Home Medications: Home Medications Medication Instructions Recorded Confirmed Last Taken Type Lisinopril [Zestril TAB] 40 mg PO QDAY #30 02/29/16 11/14/17 1 Day Ago Rx ~02/01/17 buPROPion SR [Wellbutrin SR] 100 mg PO BID #60 tablet 02/29/16 11/14/17 1 Day Ago Rx ~02/01/17 Acetaminophen [Acetaminophen TAB] 325 mg PO Q4H PRN #30 tablet 11/13/16 1 Day Ago Rx ~02/01/17 Aspirin EC [Aspirin Enteric Coated 81 mg PO QDAY #30 tablet 11/13/16 11/14/17 1 Day Ago Rx TAB] ~02/01/17 Clopidogrel [Plavix] 75 mg PO QDAY #30 tablet 11/13/16 11/14/17 1 Day Ago Rx ~02/01/17 Metoprolol Tartrate 75 mg PO BID #60 tablet 11/13/16 11/14/17 1 Day Ago Rx ~02/01/17 Pregabalin [Lyrica] 75 mg PO BID capsule 11/13/16 11/14/17 1 Day Ago Rx ~02/01/17 Rosuvastatin Calcium [Crestor] 40 mg PO QHS #30 tablet 11/13/16 11/14/17 1 Day Ago Rx ~02/01/17 Ciprofloxacin HCl [Cipro] 500 mg PO BID #20 tablet 01/19/18 Unknown Rx HYDROcodone/APAP 5-325 [[place] 1 each PO Q6HR PRN #12 tablet 01/19/18 Unknown Rx 5/325] metroNIDAZOLE [Flagyl] 500 mg PO Q8HR #21 tablet 01/19/18 Unknown Rx Acetaminophen/Codeine [Tylenol 1 tab PO Q6H PRN #12 tab 02/09/18 Unknown Rx /Codeine # 3 tab] Sulfamethoxazole/Trimethoprim 1 each PO BID #20 tablet 02/09/18 Unknown Rx [Bactrim DS TAB] ED Abscess Boil Physical Exam - Exam General: Vital signs noted. No distress. Alert and acting appropriately. Front/Back of Body, Lg (Color): 1 - 1 cm erytematous nodule to right right axilla x 2, tenderness, fluctuance, surrounding cellulitis, no active drainage 2 - Half a centimeter nonfluctuant nodule to right medial buttocks, tenderness , no surrounding cellulitis. Size: 1 cm Exam: Yes Tenderness, Yes Fluctuance, Yes Surrounding Cellulites/Erythema, Yes Normal Neurologic Exam, Yes Normal Circulation, No Lymphangitis, No Crepitation , No Heart Murmur I & D Note - I & D Note I & D Note: The right axilla area was prepared and draped in the usual, sterile manner. The site was anesthetized with 1% lidocaine without epinephrine. A linear incision along the local skin lines was made and the purulent material expressed. The abcess was explored thoroughly and sequestered pockets were opened. Bleeding was minimal. Packing: idodoform. Followup: The patient tolerated the procedure well without complications. Standard post-procedure care was explained and return precautions are given. ED Course Vital Signs 02/09/18 02/09/18 10:34 11:35 Temperature 98.7 F Pulse Rate 67 Respiratory 24 16 Rate Blood Pressure 123/94 O2 Sat by Pulse 98 Oximetry Critical care attestation.: If time is entered above; I have spent that time in minutes in the direct care of this critically ill patient, excluding procedure time. ED Medical Decision Making - Lab Data Result diagrams: 02/09/18 10:47 02/09/18 10:47 Lab Results 02/09/18 02/09/18 Range/Units 10:47 10:47 WBC 9.9 (4.5-11.0) K/mm3 RBC 4.86 (3.65-5.03) M/mm3 Hgb 15.1 (11.8-15.2) gm/dl Hct 44.8 (35.5-45.6) % MCV 92 (84-94) fl MCH 31 (28-32) pg MCHC 34 (32-34) % RDW 14.8 (13.2-15.2) % Plt Count 190 (140-440) K/mm3 Sodium 135 L (137-145) mmol/L Potassium 4.1 (3.6-5.0) mmol/L Chloride 95.1 L (98-107) mmol/L Carbon Dioxide 27 (22-30) mmol/L Anion Gap 17 mmol/L BUN 11 (9-20) mg/dL Creatinine 1.2 (0.8-1.5) mg/dL Estimated GFR > 60 ml/min BUN/Creatinine Ratio 9 % Glucose 140 H (75-100) mg/dL Calcium 9.7 (8.4-10.2) mg/dL Total Bilirubin 0.60 (0.1-1.2) mg/dL AST 16 (5-40) units/L ALT 17 (7-56) units/L Alkaline Phosphatase 76 (35-129) units/L Total Protein 7.7 (6.3-8.2) g/dL Albumin 4.2 (3.9-5) g/dL Albumin/Globulin Ratio 1.2 % - Medical Decision Making This is a 52 y.o. male that presents with a painful abscess to right axilla and right buttocks for 3 days. No history of prior abscess. Patient is stable and examined by me. I&D of abscess to the right axilla, review know. Abscess on buttock non-fluctuance and does not require I&d at this time. No acute signs of distress noted. Given norco while in ER. I&D refer to note. Discussed plan to start bactrim DS and tylenol #3 with patient. Educated patient on follow up plan to have packing removed and wound reassessed in 2-3 days. Patient agrees to ED plan of care. Discharged home and follow up with PCP in 2-3 days. ED Disposition Clinical Impression: Abscess of axilla, right, Abscess of buttock, right, Cellulitis of axilla, right Disposition: TO HOME OR SELFCARE Is pt being admited?: No Does the pt Need Aspirin: No Condition: Stable Instructions: Abscess (ED), Abscess Incision and Drainage (ED) Additional Instructions: Keep packing in place for 2-3 days. Return to ER or f/u with primary care provider to have packing removed and wound reassessed. Complete full round of bactrim DS antibiotic as prescribed. Follow up with primary care provider or ER in 2-3 days. Return to ER if foul smelling discharge, swelling, or severe pain to wound. Prescriptions: Acetaminophen/Codeine [Tylenol /Codeine # 3 tab] 1 tab PO Q6H PRN #12 tab PRN Reason: Pain , Severe (7-10) Sulfamethoxazole/Trimethoprim [Bactrim DS TAB] 1 each PO BID #20 tablet Referrals: [facility] [Outside] - 3-5 Days [facility] [Outside] - 3-5 Days [facility] [Outside] - 3-5 Days Time of Disposition: 15:56 Print Language: [place]
[2018-02-09] MEDS ORDERED: XYLOCAINE 2% INFILTRATI ONE (12:33)
[2018-02-09] MEDS ORDERED: NORCO 5/325 PO ONE (12:33)
[2018-02-09 16:40] VITALS: BP 149/100
== END 2018-02-09 16:40 | disposition home or self-care (01) ==
LOC: ED 10:14
DX: L02.31 Cutaneous abscess of buttock (principal); L02.411 Cutaneous abscess of right axilla; L03.111 Cellulitis of right axilla; I11.0 Hypertensive heart disease with heart failure; I50.9 Heart failure, unspecified; I25.2 Old myocardial infarction; F17.200 Nicotine dependence, unspecified, uncomplicated; Z95.818 Presence of other cardiac implants and grafts; Z86.73 Personal history of transient ischemic attack (TIA), and cerebral infarction without residual deficits; Z79.899 Other long term (current) drug therapy
CPT/HCPCS: 36415; 80053; 85027; 99283

== ENCOUNTER 2018-02-12 21:30 | Inpatient (IN) | payer MEDICARE ==
[2018-02-12] MEDS ORDERED: ASPIRIN PO ONE (22:24)
[2018-02-12] MEDS ORDERED: TYLENOL PO ONE (22:30)
[2018-02-12] MEDS ORDERED: TYLENOL ONE (22:35)
[2018-02-12 23:16] LABS: Basophils % (Auto) 0.4 % (0.0-1.8); Eosinophils # (Auto) 0.2 K/mm3 (0.0-0.4); Eosinophils % (Auto) 1.3 % (0.0-4.3); Hematocrit 41.8 % (35.5-45.6); Hemoglobin 14.1 gm/dl (11.8-15.2); Lymphocytes # (Auto) 1.4 K/mm3 (1.2-5.4); Mean Corpuscular HGB Conc 34 % (32-34); Mean Corpuscular Hemoglobin 31 pg (28-32); Mean Corpuscular Volume 92 fl (84-94); Monocytes # (Auto) 0.9 K/mm3 (0.0-0.8); Monocytes % (Auto) 7.2 % (0.0-7.3); Platelet Count 223 K/mm3 (140-440); Red Blood Count 4.55 M/mm3 (3.65-5.03); Red Cell Distribution Width 14.8 % (13.2-15.2)
[2018-02-12 23:27] LABS: BUN/Creatinine Ratio 13; Blood Urea Nitrogen 14 mg/dL (9-20); Calcium 9.6 mg/dL (8.4-10.2); Hemolysis Index 3
[2018-02-13] MEDS ORDERED: TYLENOL PO ONE (08:10)
[2018-02-13] MEDS ORDERED: TYLENOL ONE (08:12)
[2018-02-13] MEDS ORDERED: XYLOCAINE 1% MPF 5 mL INFILTRATI ONE (09:12)
[2018-02-13] MEDS ORDERED: ROCEPHIN IM ONE (09:12)
[2018-02-13] MEDS ORDERED: NACL 0.9% 1000 ML 1,000 ML IV ONE (09:42)
[2018-02-13] MEDS ORDERED: PERCOCET 5/325 PO ONE (09:49)
[2018-02-13] MEDS ORDERED: XYLOCAINE 2% INFILTRATI ONE (09:50)
--- NOTE | 2018-02-13 09:51 | Emergency Department Report ---
- General Chief complaint: Chest Pain Stated complaint: WOUND CHECK Time Seen by Provider: 02/13/18 09:00 Source: patient Mode of arrival: Stretcher Limitations: Physical Limitation - History of Present Illness MD complaint: abscess/boil -: Gradual Tetanus Up to Date: yes Location: RUE, buttocks (R) Severity: moderate Quality: aching Consistency: constant Improves with: none Worsens with: none Context: none Associated symptoms: fever, chills, itching, nausea Treatments Prior to Arrival: antibiotic - Related Data Previous Rx's Medication Instructions Recorded Last Taken Type Lisinopril [Zestril TAB] 40 mg PO QDAY #30 02/29/16 1 Day Ago Rx ~02/01/17 buPROPion SR [Wellbutrin SR] 100 mg PO BID #60 tablet 02/29/16 1 Day Ago Rx ~02/01/17 Aspirin EC [Aspirin Enteric Coated 81 mg PO QDAY #30 tablet 11/13/16 1 Day Ago Rx TAB] ~02/01/17 Clopidogrel [Plavix] 75 mg PO QDAY #30 tablet 11/13/16 1 Day Ago Rx ~02/01/17 Metoprolol Tartrate 75 mg PO BID #60 tablet 11/13/16 1 Day Ago Rx ~02/01/17 Pregabalin [Lyrica] 75 mg PO BID capsule 11/13/16 1 Day Ago Rx ~02/01/17 Rosuvastatin Calcium [Crestor] 40 mg PO QHS #30 tablet 11/13/16 1 Day Ago Rx ~02/01/17 Allergies Allergy/AdvReac Type Severity Reaction Status Date / Time No Known Allergies Allergy Verified 11/14/17 07:31 Abscess Boil HPI - HPI Chief Complaint: Chest Pain Stated Complaint: WOUND CHECK Time Seen by Provider: 02/13/18 09:00 Home Medications: Previous Rx's Medication Instructions Recorded Last Taken Type Lisinopril [Zestril TAB] 40 mg PO QDAY #30 02/29/16 1 Day Ago Rx ~02/01/17 buPROPion SR [Wellbutrin SR] 100 mg PO BID #60 tablet 02/29/16 1 Day Ago Rx ~02/01/17 Aspirin EC [Aspirin Enteric Coated 81 mg PO QDAY #30 tablet 11/13/16 1 Day Ago Rx TAB] ~02/01/17 Clopidogrel [Plavix] 75 mg PO QDAY #30 tablet 11/13/16 1 Day Ago Rx ~02/01/17 Metoprolol Tartrate 75 mg PO BID #60 tablet 11/13/16 1 Day Ago Rx ~02/01/17 Pregabalin [Lyrica] 75 mg PO BID capsule 11/13/16 1 Day Ago Rx ~02/01/17 Rosuvastatin Calcium [Crestor] 40 mg PO QHS #30 tablet 11/13/16 1 Day Ago Rx ~02/01/17 Allergies/Adverse Reactions: Allergies Allergy/AdvReac Type Severity Reaction Status Date / Time No Known Allergies Allergy Verified 11/14/17 07:31 ED Review of Systems ROS: Stated complaint: WOUND CHECK Other details as noted in HPI Comment: All other systems reviewed and negative Constitutional: no symptoms reported, chills, fever Respiratory: denies: cough Cardiovascular: chest pain Endocrine: denies: excessive sweating, flushing, intolerance to cold Gastrointestinal: nausea. denies: abdominal pain Genitourinary: denies: urgency, dysuria Musculoskeletal: back pain Skin: lesions. denies: rash Neurological: weakness. denies: headache Psychiatric: denies: anxiety, depression Hematological/Lymphatic: denies: easy bleeding ED Past Medical Hx - Past Medical History Hx Hypertension: Yes Hx CVA: Yes (left side weakness) Hx Heart Attack/AMI: Yes (x2) Hx Congestive Heart Failure: Yes Hx Diabetes: No Hx Asthma: No Hx COPD: No Additional medical history: [place] -- stents x2 2012; stroke x2 2012. aortic arch aneurysym - evaluated yearly by CT, last done 2014 - Surgical History Past Surgical History?: Yes Additional Surgical History: Cardiac stents x2 - Family History Family history: no significant - Social History Smoking Status: Current Every Day Smoker Substance Use Type: None - Medications Home Medications: Home Medications Medication Instructions Recorded Confirmed Last Taken Type Lisinopril [Zestril TAB] 40 mg PO QDAY #30 02/29/16 11/14/17 1 Day Ago Rx ~02/01/17 buPROPion SR [Wellbutrin SR] 100 mg PO BID #60 tablet 02/29/16 11/14/17 1 Day Ago Rx ~02/01/17 Aspirin EC [Aspirin Enteric Coated 81 mg PO QDAY #30 tablet 11/13/16 11/14/17 1 Day Ago Rx TAB] ~02/01/17 Clopidogrel [Plavix] 75 mg PO QDAY #30 tablet 11/13/16 11/14/17 1 Day Ago Rx ~02/01/17 Metoprolol Tartrate 75 mg PO BID #60 tablet 11/13/16 11/14/17 1 Day Ago Rx ~02/01/17 Pregabalin [Lyrica] 75 mg PO BID capsule 11/13/16 11/14/17 1 Day Ago Rx ~02/01/17 Rosuvastatin Calcium [Crestor] 40 mg PO QHS #30 tablet 11/13/16 11/14/17 1 Day Ago Rx ~02/01/17 ED Physical Exam - General Limitations: Physical Limitation General appearance: alert - Head Head exam: Present: atraumatic - Eye Eye exam: Present: PERRL - ENT ENT exam: Present: mucous membranes moist - Neck Neck exam: Present: normal inspection - Respiratory Respiratory exam: Present: normal lung sounds bilaterally - Cardiovascular Cardiovascular Exam: Present: regular rate - GI/Abdominal GI/Abdominal exam: Present: soft - Extremities Exam Extremities exam: Present: normal inspection - Back Exam Back exam: Present: normal inspection - Neurological Exam Neurological exam: Present: alert, oriented X3 - Psychiatric Psychiatric exam: Present: normal affect, normal mood - Skin Skin exam: Present: warm, dry, other (abscess x 2 under r arm- packing removed) - Expanded Skin Exam Expanded Type of lesion: Present: abscess (2 under r axilla; 1 large of buttocks) Distribution of rash: RUE Description of rash: Present: size (4 in wide x 6 inch long cellulitic area with smaller abscess in that area), tenderness, erythematous, swelling, discharge, fluctuant ED Course Vital Signs 02/12/18 02/12/18 02/13/18 21:46 22:15 03:13 Temperature 101.5 F H 101.5 F H 98.8 F Pulse Rate 98 H 95 H 76 Respiratory 18 18 18 Rate Blood Pressure 148/107 148/107 134/93 Blood Pressure [Left] O2 Sat by Pulse 96 97 99 Oximetry 02/13/18 02/13/18 02/13/18 08:11 09:15 09:24 Temperature 98.4 F 98 F Pulse Rate 76 Respiratory 18 18 Rate Blood Pressure Blood Pressure 119/81 [Left] O2 Sat by Pulse 96 96 Oximetry - Reevaluation(s) Reevaluation #1: 02/13/18 12:02 admitted febrile and with wbc inc to er today he was here 2 days ago for packing of 2 r axilla abscesses placed on bactrum which he has been taking. temp responded to fluids and tylenol non dm hx cad and previous cva labs noted i/d performed for large amount purulent drainage from r buttox packing removed from r axilla abscess rocephin and vanc in er blood cx sent lactic normal in ER discussed ct with rad can not ro fistula given failed outpt management and worsening fever with remaining leukocytosis will admit for IV anbx. Discussed with Dr Dc and Dr Saenz - I & D axilla Progress: packing removed from 2 abscess buttox Type of Procedure: Complex Site: large Blade Size: 11 I & D Procedure: betadine prep, sterile drapes applied, sterile dressing applied Progress: packed and dressed ED Medical Decision Making - Lab Data Result diagrams: 02/12/18 22:39 02/12/18 22:39 - EKG Data -: EKG Interpreted by Me Rate: tachycardia - EKG Data When compared to previous EKG there are: no significant change - Radiology Data Radiology results: report reviewed, image reviewed - Medical Decision Making failed outpt anbx admitted febrile w white count despite anbx at home worsening buttox abscess/cellulitic area non diabetic - Differential Diagnosis ro sepsis /perianal abscess Critical care attestation.: If time is entered above; I have spent that time in minutes in the direct care of this critically ill patient, excluding procedure time. ED Disposition Clinical Impression: Abscess of axilla, right, Abscess of buttock, right, Cellulitis of axilla, right, History of heart artery stent, Nicotine dependence, History of CVA with residual deficit, Fever Disposition: 09 OP ADMIT IP TO THIS HOSP Is pt being admited?: Yes Does the pt Need Aspirin: No Condition: Stable Time of Disposition: 12:02
[2018-02-13] MEDS ORDERED: NACL 0.9% 500 ML IR ONE (09:53)
[2018-02-13] MEDS ORDERED: PERCOCET 5/325 ONE (09:53)
--- NOTE | 2018-02-13 09:57 | XRay Report ---
FINAL REPORT EXAM: XR CHEST ROUTINE 2V HISTORY: cp TECHNIQUE: Frontal and lateral views of the chest. PRIORS: None currently available. FINDINGS: Cardiac silhouette is within normal limits. There is no effusion. There is no pneumothorax. There is no consolidation. There are no suspicious osseous lesions. IMPRESSION: No acute cardiopulmonary findings.
[2018-02-13] MEDS ORDERED: XYLOCAINE 1% 20 mL ONE (10:01)
--- NOTE | 2018-02-13 11:34 | Cat Scan Report ---
FINAL REPORT EXAM: CT PELVIS W CON HISTORY: large abscess/fistula TECHNIQUE: CT pelvis with IV contrast. Coronal and sagittal reconstructed imaging provided. PRIORS: CT abdomen pelvis January 18, 2018. FINDINGS: Series 2: 98-105 demonstrates a complex fluid collection with gas in the medial subcutaneous soft tissues of the right buttocks measuring 2.0 x 1.9 cm. Surrounding stranding and wall thickening identified. Dehiscence into the skin noted. Stranding extends to the perianal region but a distinct fistulous connection is not evident. [id number] stool in the colon the rectum. Sigmoid diverticulosis. No wall thickening or inflammatory changes. Small bowel loops are unremarkable. Images of the bladder are unremarkable. Limited images of the prostate are unremarkable. No pelvic mass or adenopathy. Inguinal regions are unremarkable. IMPRESSION: Small abscess/phlegmon in the medial subcutaneous soft tissues of the right buttocks with dehiscence to the medial skin. Surrounding stranding and skin thickening identified. Stranding extends to the perineal region but a distinct fistula is not clearly evident. Small fistulous connection is not entirely excluded.
[2018-02-13] MEDS ORDERED: VANCOMYCIN/NS 1 GM/250 ML 1 GM/250 ML BAG IV SCH ×2 (12:00)
[2018-02-13] MEDS: VANCOMYCIN VIAL 1,500 MG in NACL 0.9% 500 ML 500 ML IV ONE ×2 (12:27→14:01)
[2018-02-13] MEDS ORDERED: ZOFRAN IV PRN ×2 (14:42→23:22)
[2018-02-13] MEDS: MORPHINE IV PRN ×3 (15:29→22:27)
[2018-02-13] MEDS ORDERED: SODIUM CHLORIDE FLUSH SYRINGE 10 ML IV PRN (23:22)
[2018-02-13] MEDS ORDERED: TYLENOL PO PRN (23:22)
--- NOTE | 2018-02-13 23:22 | History and Physical Report ---
History of Present Illness Date of examination: 02/13/18 Date of admission: 02/13/18 13:10 Medications and Allergies Allergies Allergy/AdvReac Type Severity Reaction Status Date / Time No Known Allergies Allergy Verified 11/14/17 07:31 Home Medications Medication Instructions Recorded Confirmed Last Taken Type Lisinopril [Zestril TAB] 40 mg PO QDAY #30 02/29/16 02/13/18 1 Day Ago Rx ~02/01/17 buPROPion SR [Wellbutrin SR] 100 mg PO BID #60 tablet 02/29/16 02/13/18 1 Day Ago Rx ~02/01/17 Aspirin EC [Aspirin Enteric Coated 81 mg PO QDAY #30 tablet 11/13/16 02/13/18 1 Day Ago Rx TAB] ~02/01/17 Clopidogrel [Plavix] 75 mg PO QDAY #30 tablet 11/13/16 02/13/18 1 Day Ago Rx ~02/01/17 Metoprolol Tartrate 75 mg PO BID #60 tablet 11/13/16 02/13/18 1 Day Ago Rx ~02/01/17 Pregabalin [Lyrica] 75 mg PO BID capsule 11/13/16 02/13/18 1 Day Ago Rx ~02/01/17 Rosuvastatin Calcium [Crestor] 40 mg PO QHS #30 tablet 11/13/16 02/13/18 1 Day Ago Rx ~02/01/17 Active Meds: Active Medications Morphine Sulfate (Morphine) 2 mg IV Q3H PRN PRN Reason: Pain, Moderate (4-6) Last Admin: 02/13/18 22:27 Dose: 2 mg Ondansetron HCl (Zofran) 4 mg IV Q4H PRN PRN Reason: Nausea And Vomiting Last Admin: 02/13/18 15:29 Dose: 4 mg Pneumococcal Polyvalent Vaccine (Pneumovax 23) 0.5 ml IM .ONCE ONE Stop: 02/14/18 12:01 Exam - Constitutional Vitals: Temp Pulse Resp BP Pulse Ox 97.4 F L 64 18 125/86 95 02/13/18 14:15 02/13/18 14:15 02/13/18 14:15 02/13/18 14:15 02/13/18 14:15 Results - Labs CBC & Chem 7: 02/12/18 22:39 02/12/18 22:39 Labs: Laboratory Last Values WBC 13.1 K/mm3 (4.5-11.0) H 02/12/18 22:39 RBC 4.55 M/mm3 (3.65-5.03) 02/12/18 22:39 Hgb 14.1 gm/dl (11.8-15.2) 02/12/18 22:39 Hct 41.8 % (35.5-45.6) 02/12/18 22:39 MCV 92 fl (84-94) 02/12/18 22:39 MCH 31 pg (28-32) 02/12/18 22:39 MCHC 34 % (32-34) 02/12/18 22:39 RDW 14.8 % (13.2-15.2) 02/12/18 22:39 Plt Count 223 K/mm3 (140-440) 02/12/18 22:39 Lymph % (Auto) 11.0 % (13.4-35.0) L 02/12/18 22:39 [place] % (Auto) 7.2 % (0.0-7.3) 02/12/18 22:39 Eos % (Auto) 1.3 % (0.0-4.3) 02/12/18 22:39 Baso % (Auto) 0.4 % (0.0-1.8) 02/12/18 22:39 Lymph # 1.4 K/mm3 (1.2-5.4) 02/12/18 22:39 [place] # 0.9 K/mm3 (0.0-0.8) H 02/12/18 22:39 Eos # 0.2 K/mm3 (0.0-0.4) 02/12/18 22:39 Baso # 0.0 K/mm3 (0.0-0.1) 02/12/18 22:39 Seg Neutrophils % 80.1 % (40.0-70.0) H 02/12/18 22:39 Seg Neutrophils # 10.4 K/mm3 (1.8-7.7) H 02/12/18 22:39 Sodium 129 mmol/L (137-145) L 02/12/18 22:39 Potassium 4.5 mmol/L (3.6-5.0) 02/12/18 22:39 Chloride 92.7 mmol/L (98-107) L 02/12/18 22:39 Carbon Dioxide 23 mmol/L (22-30) 02/12/18 22:39 Anion Gap 18 mmol/L 02/12/18 22:39 BUN 14 mg/dL (9-20) 02/12/18 22:39 Creatinine 1.1 mg/dL (0.8-1.5) 02/12/18 22:39 Estimated GFR > 60 ml/min 02/12/18 22:39 BUN/Creatinine Ratio 13 % 02/12/18 22:39 Glucose 110 mg/dL (75-100) H 02/12/18 22:39 Lactic Acid 1.10 mmol/L (0.7-2.0) 02/13/18 10:27 Calcium 9.6 mg/dL (8.4-10.2) 02/12/18 22:39 Troponin T < 0.010 ng/mL (0.00-0.029) 02/13/18 04:38
[2018-02-13] MEDS ORDERED: VANCOMYCIN PHARMACY TO DOSE IV SCH (23:45)
[2018-02-14] MEDS: NACL 0.9% 1000 ML 1,000 ML IV SCH ×2 (00:49→17:46)
[2018-02-14] MEDS: UNASYN/NS 3 GM/100 ML 3 GM/100 ML BAG IV SCH ×4 (00:49→17:40)
[2018-02-14] MEDS ORDERED: VANCOMYCIN 2,000 MG in NACL 0.9% 500 ML 500 ML IV ONE (01:00)
[2018-02-14] MEDS: DILAUDID IV PRN ×5 (02:03→21:23)
[2018-02-14] MEDS ORDERED: VANCOMYCIN 1,250 MG in NACL 0.9% 250ML 250 ML IV SCH (06:00)
[2018-02-14 06:44] LABS: Basophils # (Auto) 0.1 K/mm3 (0.0-0.1); Basophils % (Auto) 0.7 % (0.0-1.8); Eosinophils # (Auto) 0.5 K/mm3 (0.0-0.4); Eosinophils % (Auto) 5.1 % (0.0-4.3); Hematocrit 38.7 % (35.5-45.6); Hemoglobin 12.8 gm/dl (11.8-15.2); Lymphocytes # (Auto) 1.5 K/mm3 (1.2-5.4); Lymphocytes % (Auto) 16.8 % (13.4-35.0); Mean Corpuscular HGB Conc 33 % (32-34); Mean Corpuscular Hemoglobin 30 pg (28-32); Mean Corpuscular Volume 92 fl (84-94); Monocytes # (Auto) 0.8 K/mm3 (0.0-0.8); Monocytes % (Auto) 8.5 % (0.0-7.3); Platelet Count 190 K/mm3 (140-440); Red Blood Count 4.21 M/mm3 (3.65-5.03); Red Cell Distribution Width 14.9 % (13.2-15.2)
[2018-02-14 07:00] LABS: Alanine Aminotransferase 93 units/L (7-56); Albumin 3.4 g/dL (3.9-5); BUN/Creatinine Ratio 11; Blood Urea Nitrogen 9 mg/dL (9-20); Hemolysis Index 3
--- NOTE | 2018-02-14 07:16 | Event Note ---
Date: 02/13/18 See dictated H/p n reports Rt Gluteal abscess Rt axillary abscess
--- NOTE | 2018-02-14 08:38 | History and Physical Report ---
CHIEF COMPLAINT: Swelling in the right gluteal region and right axilla. HISTORY OF PRESENT ILLNESS: The patient comes in for wound check on the right axilla and right gluteal region. The patient was apparently seen 2 days ago and was started on antibiotics. Now, the swelling in the right gluteal region has increased and pain is about 10 on a scale of 1-10. The patient had an I and D done in the Emergency Room, which drained some pus, being asked to admit. The patient had packing in the right axilla for two abscesses. The patient was put on Bactrim. PAST MEDICAL HISTORY: Significant for hypertension, coronary artery disease, peripheral neuropathy, hyperlipidemia. CURRENT MEDICATIONS: Lisinopril 40 mg once a day, Plavix 75 mg once a day, metoprolol 75 mg twice a day, Lyrica 75 mg twice a day, Crestor 40 mg p.o. at bedtime. PAST SURGICAL HISTORY: Cardiac stents x 2. FAMILY HISTORY: No significant family history. SOCIAL HISTORY: Smokes over a pack a day. REVIEW OF SYSTEMS: Other than the pain in the right gluteal region and right axilla, review of systems is essentially negative. A 14-point review of systems was done. PHYSICAL EXAMINATION: GENERAL: A middle-aged male, cooperative during examination. VITAL SIGNS: Blood pressure is 119/81, temperature is 98, pulse is 76, respirations are 18. HEENT: Unremarkable. Pupils equal and reactive. NECK: Supple, no lymphadenopathy, no thyromegaly. LUNGS: Clear to auscultation and percussion. Good air entry. CARDIOVASCULAR: S1, S2 heard. No gallop, no murmur, no rub. Apical impulse in left fifth intercostal space and midclavicular line. ABDOMEN: Soft and benign. No hepatosplenomegaly. No guarding, no rigidity. Hernial orifices are normal. EXTREMITIES: There is a gluteal abscess with drain in the right gluteal region in the gluteal fold close to the anal orifice. A 3 x 2 cm gluteal swelling. Also right axillary 1 cm x 1 cm swelling. No drainage. Tender in the right gluteal region. CENTRAL NERVOUS SYSTEM: Normal. LABORATORY DATA: Significant for white count of 9100, H is 14.1 and 41.8. Repeat white count is 13.1 thousand. Sodium is 129, glucose is 110, BUN and creatinine is [address] was done. Small abscess in the medial subcutaneous soft tissue of the right buttock to the medial skin, surrounding stranding and skin thickening identified. Stranding extends to the perineal region, but a distinct fistula is not clearly evident. ASSESSMENT AND PLAN: 1. Right gluteal abscess, was incised and drained. The patient was started on Unasyn and vancomycin. The patient may need 1 or 2 days of antibiotics and then switch to oral antibiotics with followup with surgery. Also, wound care requested. Right axilla abscess is nearly resolving. 2. Hypertension. Continue metoprolol and lisinopril. 3. Peripheral neuropathy. Continue Lyrica. 4. Hyperlipidemia. Continue Crestor. 5. Coronary artery disease. Continue Plavix 75 once a day. 6. Depression. Continue Wellbutrin-SR 100 b.i.d. 7. Deep venous thrombosis prophylaxis, Lovenox 40 mg subq daily. GI prophylaxis was also initiated. JOB# [id number] VSM/NTS
[2018-02-14] MEDS: SODIUM CHLORIDE FLUSH SYRINGE 10 ML IV SCH ×2 (09:43→21:29)
--- NOTE | 2018-02-14 09:54 | Progress Note ---
Assessment and Plan Assessment and plan: Right gluteal abscess. Continue IV antibiotics. Follow-up with surgery. Peripheral neuropathy. Continue Lyrica. Hypertension. Continue metoprolol and lisinopril. Hyperlipidemia. Continue Crestor. Coronary artery disease. Continue Plavix daily. Depression. Continue Wellbutrin 100 mg twice a day. DVT prophylaxis. Continue Lovenox daily. History Interval history: No new issues overnight Hospitalist Physical - Constitutional Vitals: Temp Pulse Resp BP Pulse Ox 98.8 F 58 L 18 122/84 96 02/14/18 00:27 02/14/18 00:27 02/14/18 00:27 02/14/18 00:27 02/14/18 00:27 General appearance: Present: no acute distress, well-nourished - EENT Eyes: Present: PERRL, EOM intact ENT: hearing intact, clear oral mucosa, dentition normal - Neck Neck: Present: supple, normal ROM - Respiratory Respiratory effort: normal Respiratory: bilateral: CTA - Cardiovascular Rhythm: regular Heart Sounds: Present: S1 & S2. Absent: gallop, rub - Extremities Extremities: no ischemia, No edema, Full ROM - Abdominal General gastrointestinal: soft, non-tender, non-distended, normal bowel sounds - Integumentary Integumentary: Present: clear, warm, dry - Neurologic Neurologic: CNII-XII intact, moves all extremities Results - Labs CBC & Chem 7: 02/14/18 05:54 02/14/18 05:54 Labs: Laboratory Last Values WBC 9.1 K/mm3 (4.5-11.0) 02/14/18 05:54 RBC 4.21 M/mm3 (3.65-5.03) 02/14/18 05:54 Hgb 12.8 gm/dl (11.8-15.2) 02/14/18 05:54 Hct 38.7 % (35.5-45.6) 02/14/18 05:54 MCV 92 fl (84-94) 02/14/18 05:54 MCH 30 pg (28-32) 02/14/18 05:54 MCHC 33 % (32-34) 02/14/18 05:54 RDW 14.9 % (13.2-15.2) 02/14/18 05:54 Plt Count 190 K/mm3 (140-440) 02/14/18 05:54 Lymph % (Auto) 16.8 % (13.4-35.0) 02/14/18 05:54 [place] % (Auto) 8.5 % (0.0-7.3) H 02/14/18 05:54 Eos % (Auto) 5.1 % (0.0-4.3) H 02/14/18 05:54 Baso % (Auto) 0.7 % (0.0-1.8) 02/14/18 05:54 Lymph # 1.5 K/mm3 (1.2-5.4) 02/14/18 05:54 [place] # 0.8 K/mm3 (0.0-0.8) 02/14/18 05:54 Eos # 0.5 K/mm3 (0.0-0.4) H 02/14/18 05:54 Baso # 0.1 K/mm3 (0.0-0.1) 02/14/18 05:54 Seg Neutrophils % 68.9 % (40.0-70.0) 02/14/18 05:54 Seg Neutrophils # 6.3 K/mm3 (1.8-7.7) 02/14/18 05:54 Sodium 134 mmol/L (137-145) L 02/14/18 05:54 Potassium 4.5 mmol/L (3.6-5.0) 02/14/18 05:54 Chloride 98.4 mmol/L (98-107) 02/14/18 05:54 Carbon Dioxide 23 mmol/L (22-30) 02/14/18 05:54 Anion Gap 17 mmol/L 02/14/18 05:54 BUN 9 mg/dL (9-20) 02/14/18 05:54 Creatinine 0.8 mg/dL (0.8-1.5) 02/14/18 05:54 Estimated GFR > 60 ml/min 02/14/18 05:54 BUN/Creatinine Ratio 11 % 02/14/18 05:54 Glucose 101 mg/dL (75-100) H 02/14/18 05:54 Hemoglobin A1c 6.0 % (4-6) 02/13/18 23:43 Lactic Acid 1.10 mmol/L (0.7-2.0) 02/13/18 10:27 Calcium 9.0 mg/dL (8.4-10.2) 02/14/18 05:54 Total Bilirubin 0.40 mg/dL (0.1-1.2) 02/14/18 05:54 AST 44 units/L (5-40) H 02/14/18 05:54 ALT 93 units/L (7-56) H 02/14/18 05:54 Alkaline Phosphatase 91 units/L (35-129) 02/14/18 05:54 Troponin T < 0.010 ng/mL (0.00-0.029) 02/13/18 04:38 Total Protein 6.9 g/dL (6.3-8.2) 02/14/18 05:54 Albumin 3.4 g/dL (3.9-5) L 02/14/18 05:54 Albumin/Globulin Ratio 1.0 % 02/14/18 05:54
[2018-02-14] MEDS ORDERED: NON-FORMULARY (Metoprolol Tartrate [Metoprolol Tartrate] 75 MG) PO SCH (10:00)
[2018-02-14] MEDS ORDERED: PNEUMOVAX 23 IM ONE (12:00)
[2018-02-14] MEDS ORDERED: AFLURIA QUAD 2018-2019 SYRINGE IM ONE (12:00)
[2018-02-14] MEDS: PEPCID IV SCH ×2 (12:20→21:22)
[2018-02-14] MEDS: HALFPRIN EC PO SCH (12:21)
[2018-02-14] MEDS: LYRICA PO SCH ×2 (12:21→21:23)
[2018-02-14] MEDS: PLAVIX PO SCH (12:22)
[2018-02-14] MEDS: ZESTRIL PO SCH (12:22)
[2018-02-14] MEDS: WELLBUTRIN SR PO SCH ×2 (12:55→21:22)
[2018-02-14] MEDS: LOPRESSOR PO SCH ×2 (12:57→21:24)
[2018-02-14] MEDS: VANCOMYCIN 1,500 MG in NACL 0.9% 500 ML 500 ML IV SCH (18:32)
--- NOTE | 2018-02-14 18:32 | Consultation ---
History of Present Illness Consult date: 02/14/18 Reason for consult: wound care Requesting physician: ALEKSANDAR YORK Chief complaint: two areas of infection - History of present illness History of present illness: 52yo M smoker presented to the ER for wound care of the right axilla and right buttock pain. Patient reports that about 3 to 4 days ago he had pain in the right axilla and the right buttock. He presented to the emergency room. Incision and drainage was done of the right axilla and the staff felt that nothing needed to be done for the buttock. Patient returned in a great deal of pain in the buttock area along with fevers, nausea, generalized pain, and ill feeling. Incision and drainage was done last night in the emergency room at the right buttock. General Surgery Is Asked to Evaluate and Manage the Wounds. Patient Reports That He Is Feeling Much Better Today. The Generalized Pain Is Resolved. The Right Buttock Area is Much Softer to Feel and Much Less Tender. Patient Feels Much Better Overall. Past History Past Medical History: acute IA, CAD, hypertension, hyperlipidemia, stroke, other (peripheral neuropathy) Past Surgical History: PTCA (stents x 2) Social history: smoking (>1pk/d). denies: alcohol abuse, prescription drug abuse, IV drug use Family history: no significant family history Medications and Allergies Allergies Allergy/AdvReac Type Severity Reaction Status Date / Time No Known Allergies Allergy Verified 11/14/17 07:31 Home Medications Medication Instructions Recorded Confirmed Last Taken Type Lisinopril [Zestril TAB] 40 mg PO QDAY #30 02/29/16 02/13/18 1 Day Ago Rx ~02/01/17 buPROPion SR [Wellbutrin SR] 100 mg PO BID #60 tablet 02/29/16 02/13/18 1 Day Ago Rx ~02/01/17 Aspirin EC [Aspirin Enteric Coated 81 mg PO QDAY #30 tablet 11/13/16 02/13/18 1 Day Ago Rx TAB] ~02/01/17 Clopidogrel [Plavix] 75 mg PO QDAY #30 tablet 11/13/16 02/13/18 1 Day Ago Rx ~02/01/17 Metoprolol Tartrate 75 mg PO BID #60 tablet 11/13/16 02/13/18 1 Day Ago Rx ~02/01/17 Pregabalin [Lyrica] 75 mg PO BID capsule 11/13/16 02/13/18 1 Day Ago Rx ~02/01/17 Rosuvastatin Calcium [Crestor] 40 mg PO QHS #30 tablet 11/13/16 02/13/18 1 Day Ago Rx ~02/01/17 Active Meds: Active Medications Acetaminophen (Tylenol) 650 mg PO Q4H PRN PRN Reason: Pain MILD(1-3)/Fever >100.5/BLANK Aspirin (Halfprin Ec) 81 mg PO QDAY [facility] Last Admin: 02/14/18 12:21 Dose: 81 mg Atorvastatin Calcium (Lipitor) 80 mg PO QHS [facility] Bupropion HCl (Wellbutrin Sr) 100 mg PO BID [facility] Last Admin: 02/14/18 12:55 Dose: 100 mg Clopidogrel Bisulfate (Plavix) 75 mg PO QDAY [facility] Last Admin: 02/14/18 12:22 Dose: 75 mg Famotidine (Pepcid) 20 mg IV BID [facility] Last Admin: 02/14/18 12:20 Dose: 20 mg Hydromorphone HCl (Dilaudid) 1 mg IV Q3H PRN PRN Reason: Pain , Severe (7-10) Last Admin: 02/14/18 12:29 Dose: 1 mg Sodium Chloride (Nacl 0.9% 1000 Ml) 1,000 mls @ 75 mls/hr IV DIRECT [facility] Last Admin: 02/14/18 17:46 Dose: 75 mls/hr Ampicillin Sodium/Sulbactam Sodium (Unasyn/Ns 3 Gm/100 Ml) 3 gm in 100 mls @ 100 mls/hr IV Q6HR [facility]; Protocol Last Admin: 02/14/18 17:40 Dose: 100 mls/hr Vancomycin HCl 1,500 mg/ (Sodium Chloride) 530 mls @ 333.333 mls/hr IV Q12H [facility] Lisinopril (Zestril) 40 mg PO QDAY [facility] Last Admin: 02/14/18 12:22 Dose: 40 mg Metoprolol Tartrate (Lopressor) 75 mg PO BID [facility] Last Admin: 02/14/18 12:57 Dose: Not Given Morphine Sulfate (Morphine) 2 mg IV Q3H PRN PRN Reason: Pain, Moderate (4-6) Last Admin: 02/13/18 22:27 Dose: 2 mg Ondansetron HCl (Zofran) 4 mg IV Q8H PRN PRN Reason: Nausea And Vomiting Pregabalin (Lyrica) 75 mg PO BID [facility] Last Admin: 02/14/18 12:21 Dose: 75 mg Sodium Chloride (Sodium Chloride Flush Syringe 10 Ml) 10 ml IV BID [facility] Last Admin: 02/14/18 09:43 Dose: 10 ml Sodium Chloride (Sodium Chloride Flush Syringe 10 Ml) 10 ml IV PRN PRN PRN Reason: LINE FLUSH Zolpidem Tartrate (Ambien) 5 mg PO QHS PRN PRN Reason: Insomnia Review of Systems - Constitutional fever, no chills, no sweats, no weakness, no chronic pain - Cardiovascular no chest pain - Respiratory no cough, no shortness of breath - Gastrointestinal nausea, loss of appetite, no abdominal pain, no vomiting - Genitourinary no dysuria - Muskuloskeletal other (right armpit and right buttock pain), no low back pain - Integumentary boils - Neurological weakness (chornic on left side) Exam Vital Signs Temp Pulse Resp BP Pulse Ox 101.5 F H 98 H 18 148/107 96 02/12/18 21:46 02/12/18 21:46 02/12/18 21:46 02/12/18 21:46 02/12/18 21:46 - General physical appearance Positive: no distress, no pain, other (looks well) - Respiratory Positive: normal expansion, normal respiratory effort, clear to auscultation - Cardiovascular Rhythm: regular - Abdomen Abdomen: Present: soft. Absent: tender - Integumentary other (wound noted in right axilla. Minimal peripheral tenderness. No induration. Induration and erythema noted in right buttock. Approximately 15 cm long. Packing is in place. Minimal tenderness. The surrounding buttock is normal.) - Neurologic Neurologic: alert and oriented to time, place and person - Psychiatric Psychiatric: appropriate mood/affect, intact judgment & insight Results - Labs 02/14/18 05:54 02/14/18 05:54 Abnormal lab results 02/14/18 02/14/18 Range/Units 05:54 05:54 [place] % (Auto) 8.5 H (0.0-7.3) % Eos % (Auto) 5.1 H (0.0-4.3) % Eos # 0.5 H (0.0-0.4) K/mm3 Sodium 134 L (137-145) mmol/L Glucose 101 H (75-100) mg/dL AST 44 H (5-40) units/L ALT 93 H (7-56) units/L Albumin 3.4 L (3.9-5) g/dL Diabetes panel 02/13/18 02/14/18 Range/Units 23:43 05:54 Sodium 134 L (137-145) mmol/L Potassium 4.5 (3.6-5.0) mmol/L Chloride 98.4 (98-107) mmol/L Carbon Dioxide 23 (22-30) mmol/L BUN 9 (9-20) mg/dL Creatinine 0.8 (0.8-1.5) mg/dL Glucose 101 H (75-100) mg/dL Hemoglobin A1c 6.0 (4-6) % Calcium 9.0 (8.4-10.2) mg/dL AST 44 H (5-40) units/L ALT 93 H (7-56) units/L Alkaline Phosphatase 91 (35-129) units/L Total Protein 6.9 (6.3-8.2) g/dL Albumin 3.4 L (3.9-5) g/dL Calcium panel 02/14/18 Range/Units 05:54 Calcium 9.0 (8.4-10.2) mg/dL Albumin 3.4 L (3.9-5) g/dL Pituitary panel 02/14/18 Range/Units 05:54 Sodium 134 L (137-145) mmol/L Potassium 4.5 (3.6-5.0) mmol/L Chloride 98.4 (98-107) mmol/L Carbon Dioxide 23 (22-30) mmol/L BUN 9 (9-20) mg/dL Creatinine 0.8 (0.8-1.5) mg/dL Glucose 101 H (75-100) mg/dL Calcium 9.0 (8.4-10.2) mg/dL Adrenal panel 02/14/18 Range/Units 05:54 Sodium 134 L (137-145) mmol/L Potassium 4.5 (3.6-5.0) mmol/L Chloride 98.4 (98-107) mmol/L Carbon Dioxide 23 (22-30) mmol/L BUN 9 (9-20) mg/dL Creatinine 0.8 (0.8-1.5) mg/dL Glucose 101 H (75-100) mg/dL Calcium 9.0 (8.4-10.2) mg/dL Total Bilirubin 0.40 (0.1-1.2) mg/dL AST 44 H (5-40) units/L ALT 93 H (7-56) units/L Alkaline Phosphatase 91 (35-129) units/L Total Protein 6.9 (6.3-8.2) g/dL Albumin 3.4 L (3.9-5) g/dL - Imaging CT scan - pelvis: report reviewed, image reviewed Assessment and Plan - Patient Problems (1) Abscess of axilla, right Current Visit: Yes Status: Acute Plan to address problem: Patient stable. This area has already had an incision and drainage. Clinically is improving. Continue local wound care. No further surgical debridement needed this time. Please call with further questions. Will follow along with WOCN Time=30min (2) Abscess of buttock, right Current Visit: Yes Status: Acute Plan to address problem: Patient stable. Incision and drainage has already been done Minimal inflammatory changes noted on CT. Clinically patient is much better. Will hold off on further surgical debridement at this time. Will follow along with wound care nurse. If patient not improving or gets worse, then will plan for surgical exploration and debridement. Please call with questions
[2018-02-14] MEDS ORDERED: NON-FORMULARY (Rosuvastatin Calcium [Crestor] 40 MG) PO SCH (22:00)
[2018-02-15] MEDS: UNASYN/NS 3 GM/100 ML 3 GM/100 ML BAG IV SCH ×4 (00:41→17:18)
[2018-02-15] MEDS: MORPHINE IV PRN (01:25)
[2018-02-15] MEDS: DILAUDID IV PRN ×5 (04:29→22:20)
[2018-02-15] MEDS: VANCOMYCIN 1,500 MG in NACL 0.9% 500 ML 500 ML IV SCH ×2 (06:05→18:10)
[2018-02-15] MEDS: LYRICA PO SCH ×2 (10:22→22:21)
[2018-02-15] MEDS: PLAVIX PO SCH (10:22)
[2018-02-15] MEDS: HALFPRIN EC PO SCH (10:22)
[2018-02-15] MEDS: ZESTRIL PO SCH (10:23)
[2018-02-15] MEDS: SODIUM CHLORIDE FLUSH SYRINGE 10 ML IV SCH ×2 (10:24→22:23)
[2018-02-15] MEDS: LOPRESSOR PO SCH ×2 (10:25→22:22)
[2018-02-15] MEDS: WELLBUTRIN SR PO SCH ×2 (10:32→22:20)
--- NOTE | 2018-02-15 12:59 | Progress Note ---
Assessment and Plan Assessment and plan: Right gluteal cellulitis with abscess. Status post incision and drainage. Continue IV antibiotics and wound care. Blood cultures neg. Surgery following Right axillary cellulitis with abscess. Status post incision and drainage. Continue IV antibiotics and wound care. Blood cultures neg. Surgery following Peripheral neuropathy. Continue Lyrica. Hypertension. Controlled. Continue lisinopril, metoprolol dose decreased due to bradycardia Hyponatremia. Improved, will monitor Right foot swelling with pain. Right foot x-ray for further evaluation Hyperlipidemia. Continue Crestor. Coronary artery disease. Stable. Continue Plavix and metoprolol Depression. Continue Wellbutrin 100 mg twice a day. Transaminitis, likely secondary to the acute infection. We will monitor. DVT prophylaxis. Continue Lovenox Disposition: For d/c when cleared by surgery History Interval history: Patient complaining of right foot swelling with associated pain. He denies recent trauma Hospitalist Physical - Constitutional Vitals: Temp Pulse Resp BP Pulse Ox 98.4 F 58 L 16 111/78 99 02/15/18 05:44 02/15/18 10:23 02/15/18 05:44 02/15/18 10:23 02/15/18 05:44 General appearance: Present: no acute distress, well-nourished - EENT Eyes: Present: PERRL, EOM intact ENT: hearing intact, clear oral mucosa - Neck Neck: Present: supple - Respiratory Respiratory effort: normal Respiratory: bilateral: CTA - Cardiovascular Rhythm: other (bradycardia with regular rhythm) Heart Sounds: Present: S1 & S2 - Extremities Extremity abnormal: edema (RT foot) - Abdominal General gastrointestinal: soft, non-tender, normal bowel sounds - Neurologic Neurologic: CNII-XII intact Results - Labs CBC & Chem 7: 02/14/18 05:54 02/14/18 05:54 Labs: Laboratory Last Values WBC 9.1 K/mm3 (4.5-11.0) 02/14/18 05:54 RBC 4.21 M/mm3 (3.65-5.03) 02/14/18 05:54 Hgb 12.8 gm/dl (11.8-15.2) 02/14/18 05:54 Hct 38.7 % (35.5-45.6) 02/14/18 05:54 MCV 92 fl (84-94) 02/14/18 05:54 MCH 30 pg (28-32) 02/14/18 05:54 MCHC 33 % (32-34) 02/14/18 05:54 RDW 14.9 % (13.2-15.2) 02/14/18 05:54 Plt Count 190 K/mm3 (140-440) 02/14/18 05:54 Lymph % (Auto) 16.8 % (13.4-35.0) 02/14/18 05:54 [place] % (Auto) 8.5 % (0.0-7.3) H 02/14/18 05:54 Eos % (Auto) 5.1 % (0.0-4.3) H 02/14/18 05:54 Baso % (Auto) 0.7 % (0.0-1.8) 02/14/18 05:54 Lymph # 1.5 K/mm3 (1.2-5.4) 02/14/18 05:54 [place] # 0.8 K/mm3 (0.0-0.8) 02/14/18 05:54 Eos # 0.5 K/mm3 (0.0-0.4) H 02/14/18 05:54 Baso # 0.1 K/mm3 (0.0-0.1) 02/14/18 05:54 Seg Neutrophils % 68.9 % (40.0-70.0) 02/14/18 05:54 Seg Neutrophils # 6.3 K/mm3 (1.8-7.7) 02/14/18 05:54 Sodium 134 mmol/L (137-145) L 02/14/18 05:54 Potassium 4.5 mmol/L (3.6-5.0) 02/14/18 05:54 Chloride 98.4 mmol/L (98-107) 02/14/18 05:54 Carbon Dioxide 23 mmol/L (22-30) 02/14/18 05:54 Anion Gap 17 mmol/L 02/14/18 05:54 BUN 9 mg/dL (9-20) 02/14/18 05:54 Creatinine 0.8 mg/dL (0.8-1.5) 02/14/18 05:54 Estimated GFR > 60 ml/min 02/14/18 05:54 BUN/Creatinine Ratio 11 % 02/14/18 05:54 Glucose 101 mg/dL (75-100) H 02/14/18 05:54 Hemoglobin A1c 6.0 % (4-6) 02/13/18 23:43 Lactic Acid 1.10 mmol/L (0.7-2.0) 02/13/18 10:27 Calcium 9.0 mg/dL (8.4-10.2) 02/14/18 05:54 Total Bilirubin 0.40 mg/dL (0.1-1.2) 02/14/18 05:54 AST 44 units/L (5-40) H 02/14/18 05:54 ALT 93 units/L (7-56) H 02/14/18 05:54 Alkaline Phosphatase 91 units/L (35-129) 02/14/18 05:54 Troponin T < 0.010 ng/mL (0.00-0.029) 02/13/18 04:38 Total Protein 6.9 g/dL (6.3-8.2) 02/14/18 05:54 Albumin 3.4 g/dL (3.9-5) L 02/14/18 05:54 Albumin/Globulin Ratio 1.0 % 02/14/18 05:54
[2018-02-15] MEDS: NACL 0.9% 1000 ML 1,000 ML IV SCH (13:19)
--- NOTE | 2018-02-15 13:42 | XRay Report ---
RIGHT FOOT, 2 VIEWS History: Right foot swelling with pain. Findings: There is mild nonspecific soft tissue swelling of the distal foot. Bone mineralization is normal. No evidence for fracture, bone lesion or bony destruction. Mild osteoarthritic changes are noted at the first metatarsophalangeal joint. No erosive joint pathology. Impression: Nonspecific soft tissue swelling. Degenerative changes at the first metatarsophalangeal joint.
[2018-02-15] MEDS: PEPCID PO SCH ×2 (15:35→22:21)
[2018-02-16] MEDS: PERCOCET 5/325 PO PRN ×3 (02:02→13:06)
[2018-02-16] MEDS: UNASYN/NS 3 GM/100 ML 3 GM/100 ML BAG IV SCH ×4 (02:03→18:05)
[2018-02-16] MEDS: AMBIEN PO PRN (02:03)
[2018-02-16] MEDS: VANCOMYCIN 1,500 MG in NACL 0.9% 500 ML 500 ML IV SCH ×2 (06:16→18:06)
[2018-02-16 06:59] LABS: Albumin 2.9 g/dL (3.9-5); BUN/Creatinine Ratio 10; Blood Urea Nitrogen 9 mg/dL (9-20); Calcium 9.1 mg/dL (8.4-10.2); Hemolysis Index 196
[2018-02-16 08:12] LABS: Alanine Aminotransferase 66 units/L (7-56)
--- NOTE | 2018-02-16 08:42 | Progress Note ---
Assessment and Plan Assessment and plan: Acute Hyperkalemia Kayexalate repeat BMP in am avoid high K diets. Right gluteal abscess. s/p I&D, continue IV abx Hypertension, chronic essen. Controlled. continue BP meds. Right axillary with abscess. S/p incision and drainage. Continue IV antibiotics and wound care. Peripheral neuropathy. Continue Lyrica. Hyperlipidemia. Continue Crestor. Coronary artery disease. Stable. Continue Plavix and metoprolol Transaminitis, monitor levels. DVT prophylaxis. Continue Lovenox Further pt mgt per hospital course. History Interval history: admitted and being managed for gluteal and Axillary abscess s/p I&D. Feels better. K is 5.5 today. Hospitalist Physical - Constitutional Vitals: Temp Pulse Resp BP Pulse Ox 97.6 F 55 L 16 145/102 95 02/16/18 05:07 02/16/18 05:07 02/16/18 05:07 02/16/18 06:23 02/16/18 05:07 General appearance: Present: no acute distress, well-nourished - EENT Eyes: Present: PERRL, EOM intact ENT: hearing intact, clear oral mucosa - Neck Neck: Present: supple, normal ROM - Respiratory Respiratory: bilateral: CTA, negative: rales, rhonchi, wheezing - Cardiovascular Rhythm: regular Heart Sounds: Present: S1 & S2 - Extremities Extremities: pulses intact, pulses symmetrical Extremity abnormal: edema Peripheral Pulses: within normal limits - Abdominal General gastrointestinal: soft, non-tender, non-distended, normal bowel sounds - Integumentary Integumentary: Present: clear, warm - Psychiatric Psychiatric: appropriate mood/affect, intact judgment & insight, memory intact, cooperative - Neurologic Neurologic: CNII-XII intact, moves all extremities, gait normal - Allied Health Allied health notes reviewed: nursing, social work, case management Results - Labs CBC & Chem 7: 02/14/18 05:54 02/16/18 05:36 Labs: Laboratory Last Values WBC 9.1 K/mm3 (4.5-11.0) 02/14/18 05:54 RBC 4.21 M/mm3 (3.65-5.03) 02/14/18 05:54 Hgb 12.8 gm/dl (11.8-15.2) 02/14/18 05:54 Hct 38.7 % (35.5-45.6) 02/14/18 05:54 MCV 92 fl (84-94) 02/14/18 05:54 MCH 30 pg (28-32) 02/14/18 05:54 MCHC 33 % (32-34) 02/14/18 05:54 RDW 14.9 % (13.2-15.2) 02/14/18 05:54 Plt Count 190 K/mm3 (140-440) 02/14/18 05:54 Lymph % (Auto) 16.8 % (13.4-35.0) 02/14/18 05:54 [place] % (Auto) 8.5 % (0.0-7.3) H 02/14/18 05:54 Eos % (Auto) 5.1 % (0.0-4.3) H 02/14/18 05:54 Baso % (Auto) 0.7 % (0.0-1.8) 02/14/18 05:54 Lymph # 1.5 K/mm3 (1.2-5.4) 02/14/18 05:54 [place] # 0.8 K/mm3 (0.0-0.8) 02/14/18 05:54 Eos # 0.5 K/mm3 (0.0-0.4) H 02/14/18 05:54 Baso # 0.1 K/mm3 (0.0-0.1) 02/14/18 05:54 Seg Neutrophils % 68.9 % (40.0-70.0) 02/14/18 05:54 Seg Neutrophils # 6.3 K/mm3 (1.8-7.7) 02/14/18 05:54 Sodium 134 mmol/L (137-145) L 02/16/18 05:36 Potassium 5.5 mmol/L (3.6-5.0) H D 02/16/18 05:36 Chloride 99.4 mmol/L (98-107) 02/16/18 05:36 Carbon Dioxide 20 mmol/L (22-30) L 02/16/18 05:36 Anion Gap 20 mmol/L 02/16/18 05:36 BUN 9 mg/dL (9-20) 02/16/18 05:36 Creatinine 0.9 mg/dL (0.8-1.5) 02/16/18 05:36 Estimated GFR > 60 ml/min 02/16/18 05:36 BUN/Creatinine Ratio 10 % 02/16/18 05:36 Glucose 92 mg/dL (75-100) 02/16/18 05:36 Hemoglobin A1c 6.0 % (4-6) 02/13/18 23:43 Lactic Acid 1.10 mmol/L (0.7-2.0) 02/13/18 10:27 Calcium 9.1 mg/dL (8.4-10.2) 02/16/18 05:36 Total Bilirubin 0.30 mg/dL (0.1-1.2) 02/16/18 05:36 AST 37 units/L (5-40) 02/16/18 05:36 ALT 66 units/L (7-56) H 02/16/18 05:36 Alkaline Phosphatase 98 units/L (35-129) 02/16/18 05:36 Troponin T < 0.010 ng/mL (0.00-0.029) 02/13/18 04:38 Total Protein 6.8 g/dL (6.3-8.2) 02/16/18 05:36 Albumin 2.9 g/dL (3.9-5) L 02/16/18 05:36 Albumin/Globulin Ratio 0.7 % 02/16/18 05:36 - Imaging and Cardiology Chest x-ray: report reviewed, image reviewed
[2018-02-16] MEDS ORDERED: KIONEX PO ONE (09:00)
[2018-02-16] MEDS: HALFPRIN EC PO SCH (09:20)
[2018-02-16] MEDS: PLAVIX PO SCH (09:21)
[2018-02-16] MEDS: PEPCID PO SCH ×2 (09:21→21:36)
[2018-02-16] MEDS: LYRICA PO SCH ×2 (09:21→21:36)
[2018-02-16] MEDS: NORVASC PO SCH (09:22)
[2018-02-16] MEDS: LOPRESSOR PO SCH ×2 (09:23→21:36)
[2018-02-16] MEDS: SODIUM CHLORIDE FLUSH SYRINGE 10 ML IV SCH ×2 (09:24→22:00)
[2018-02-16] MEDS: WELLBUTRIN SR PO SCH ×2 (09:47→21:35)
[2018-02-16] MEDS: DILAUDID IV PRN (21:37)
[2018-02-17] MEDS: UNASYN/NS 3 GM/100 ML 3 GM/100 ML BAG IV SCH ×2 (00:35→06:14)
[2018-02-17] MEDS: AMBIEN PO PRN (01:34)
[2018-02-17] MEDS: PERCOCET 5/325 PO PRN ×3 (01:34→09:49)
[2018-02-17 02:06] LABS: Basophils # (Auto) 0.1 K/mm3 (0.0-0.1); Basophils % (Auto) 1.1 % (0.0-1.8); Eosinophils # (Auto) 0.4 K/mm3 (0.0-0.4); Eosinophils % (Auto) 5.6 % (0.0-4.3); Hematocrit 40.3 % (35.5-45.6); Hemoglobin 13.4 gm/dl (11.8-15.2); Lymphocytes # (Auto) 2.1 K/mm3 (1.2-5.4); Lymphocytes % (Auto) 29.8 % (13.4-35.0); Mean Corpuscular HGB Conc 33 % (32-34); Mean Corpuscular Hemoglobin 31 pg (28-32); Mean Corpuscular Volume 92 fl (84-94); Monocytes # (Auto) 0.7 K/mm3 (0.0-0.8); Monocytes % (Auto) 10.1 % (0.0-7.3); Platelet Count 251 K/mm3 (140-440); Red Blood Count 4.37 M/mm3 (3.65-5.03); Red Cell Distribution Width 14.5 % (13.2-15.2)
[2018-02-17 02:38] LABS: Alanine Aminotransferase 59 units/L (7-56); Albumin 3.4 g/dL (3.9-5); BUN/Creatinine Ratio 10; Blood Urea Nitrogen 9 mg/dL (9-20); Calcium 9.4 mg/dL (8.4-10.2); Hemolysis Index 20
[2018-02-17] MEDS: PEPCID PO SCH (09:31)
[2018-02-17] MEDS: NORVASC PO SCH (09:31)
[2018-02-17] MEDS: HALFPRIN EC PO SCH (09:31)
[2018-02-17] MEDS: LYRICA PO SCH (09:31)
[2018-02-17] MEDS: WELLBUTRIN SR PO SCH (09:31)
[2018-02-17] MEDS: PLAVIX PO SCH (09:31)
--- NOTE | 2018-02-17 09:40 | Progress Note ---
Assessment and Plan - Patient Problems (1) Abscess of axilla, right Current Visit: Yes Status: Acute Plan to address problem: Patient stable. This area is much improved. Continue local care. Ok to d/c home from my standpoint. Probably would benefit from HH. Please call with further questions. Time=10min (2) Abscess of buttock, right Current Visit: Yes Status: Acute Plan to address problem: Patient stable. Wound is much improved. Skin had closed over a small pocket. This was opened and packed with Mesalt. Would change Mesalt every other day. ok to d/c home from my standpoint. Would benefit from HH. Please call with questions Subjective Date of service: 02/17/18 Patient Reports: Positive: no new complaints, feels better, pain is less Objective Vital Signs - 12hr 02/16/18 02/16/18 02/16/18 21:37 22:07 22:42 Temperature 98.4 F Pulse Rate 56 L Respiratory 20 20 20 Rate Blood Pressure 164/100 O2 Sat by Pulse 97 Oximetry 02/17/18 02/17/18 02/17/18 01:34 02:18 02:34 Temperature Pulse Rate Respiratory 20 20 20 Rate Blood Pressure O2 Sat by Pulse Oximetry 02/17/18 02/17/18 02/17/18 05:22 06:14 06:42 Temperature 97.6 F Pulse Rate 57 L 57 L Respiratory 20 20 Rate Blood Pressure 144/97 O2 Sat by Pulse 96 Oximetry - General physical appearance no distress, no pain, other (looks well) - Respiratory normal expansion, normal respiratory effort - Integumentary other (Axillary infection much improved. Wounds are almost closed. Erythema and swelling have resolved. Buttock wound is much improved. Erythema resolved. Much less tender. Induration decreased. 2cm pocket remains. ) - Psychiatric oriented to time, oriented to person, oriented to place, speech is normal, memory intact - Labs 02/17/18 01:41 02/17/18 01:41 Diabetes panel 02/17/18 Range/Units 01:41 Sodium 138 (137-145) mmol/L Potassium 4.6 (3.6-5.0) mmol/L Chloride 100.7 (98-107) mmol/L Carbon Dioxide 27 D (22-30) mmol/L BUN 9 (9-20) mg/dL Creatinine 0.9 (0.8-1.5) mg/dL Glucose 85 (75-100) mg/dL Calcium 9.4 (8.4-10.2) mg/dL AST 25 (5-40) units/L ALT 59 H (7-56) units/L Alkaline Phosphatase 94 (35-129) units/L Total Protein 7.1 (6.3-8.2) g/dL Albumin 3.4 L (3.9-5) g/dL Calcium panel 02/17/18 Range/Units 01:41 Calcium 9.4 (8.4-10.2) mg/dL Albumin 3.4 L (3.9-5) g/dL Pituitary panel 02/17/18 Range/Units 01:41 Sodium 138 (137-145) mmol/L Potassium 4.6 (3.6-5.0) mmol/L Chloride 100.7 (98-107) mmol/L Carbon Dioxide 27 D (22-30) mmol/L BUN 9 (9-20) mg/dL Creatinine 0.9 (0.8-1.5) mg/dL Glucose 85 (75-100) mg/dL Calcium 9.4 (8.4-10.2) mg/dL Adrenal panel 02/17/18 Range/Units 01:41 Sodium 138 (137-145) mmol/L Potassium 4.6 (3.6-5.0) mmol/L Chloride 100.7 (98-107) mmol/L Carbon Dioxide 27 D (22-30) mmol/L BUN 9 (9-20) mg/dL Creatinine 0.9 (0.8-1.5) mg/dL Glucose 85 (75-100) mg/dL Calcium 9.4 (8.4-10.2) mg/dL Total Bilirubin < 0.20 (0.1-1.2) mg/dL AST 25 (5-40) units/L ALT 59 H (7-56) units/L Alkaline Phosphatase 94 (35-129) units/L Total Protein 7.1 (6.3-8.2) g/dL Albumin 3.4 L (3.9-5) g/dL
[2018-02-17] MEDS: VANCOMYCIN 1,500 MG in NACL 0.9% 500 ML 500 ML IV SCH (09:48)
[2018-02-17] MEDS ORDERED: MOTRIN PO PRN (12:15)
--- NOTE | 2018-02-17 12:23 | Discharge Summary ---
Providers - Providers Date of Admission: 02/13/18 13:10 Date of discharge: 02/17/18 Attending physician: MAYNOR WAN 02/13/18 23:22 Consult to Physician [CONS] Routine Comment: Consulting Provider: ELENITA ORTIZ Physician Instructions: Reason For Exam: Gluteal abscess 02/14/18 08:00 Consult to Wound/ET Nurse [CONS] Routine Reason For Exam: wound eval Primary care physician: DIRECTOR OF SALES Hospitalization Reason for admission: Right axillary abscess and Buttocks abscess Condition: Stable Pertinent studies: Chest XR Procedures: S/P incision and drainage of right axillary and gluteal abscess done by the General Surgeon. Hospital course: Patient is a 52 y/o male with multiple medical problems including stroke, HTN, s /p CVA with chronic left sided weakness, chronic neuropathic pain etc, presented with Right Axillary abscess and small gluteal abscess. Was seen and evaluated by the General Surgeon, who subsequently performed incision and drainage of both abscess. Patient was admitted to the hospital medicine service for inpatient management and IV abx treatment. Patient was also restarted on his home medications. He was managed adequately with IV Vancomycin and Unasyn. His pain was well controlled, though patient has chronic pain syndrome. Patient has been cleared for discharge by the General Surgeon, who also recommended Home health for wound care dressing and teaching. Patient will be discharged home today in stable condition and stable vital signs. Disposition: [id number] HOME UNDER HOME [facility] Time spent for discharge: More than 35 mins spent - Discharge Diagnoses (1) Abscess of axilla, right Status: Acute Comment: s/p I&D, Completed IV abx discharged on oral antibiotic (2) Abscess of buttock, right Status: Acute Comment: s/p I& D, completed IV abx dicharge on oral antibiotics. (3) Cellulitis of axilla, right Status: Acute Comment: improved continue oral antibiotics. (4) CAD (coronary artery disease) Status: Chronic Qualifiers: Coronary Disease-Associated Artery/Lesion type: [place] artery Associated angina: with unspecified angina Comment: Continue home medications, Aspirin, Crestor, Plavix and BB (5) HLD (hyperlipidemia) Status: Chronic Qualifiers: Hyperlipidemia type: mixed hyperlipidemia Qualified Code(s): E78.2 - Mixed hyperlipidemia Comment: Continue home Crestor/ Rosuvastatin (6) HTN (hypertension) Status: Chronic Qualifiers: Hypertension type: essential hypertension Qualified Code(s): I10 - Essential (primary) hypertension Comment: continue BP meds. Stable on discharge. (7) History of CVA with residual deficit Status: Chronic Comment: home medications contined Continue Aspirin, Statin, fall precautions at all times Outpt follow up Core Measure Documentation - Palliative Care Palliative Care/ Comfort Measures: Not Applicable - Core Measures Any of the following diagnoses?: history only - VTE Discharge Requirements Deep Vein Thrombosis/Pulmonary Embolism Present on Admission: No Has pt received <5 days of overlap therapy or INR<2.0: No Anticoagulant overlap therapy prescribed at discharge: No Contraindication No Overlap Therapy order at DC: Not Indicated - Acute MT Discharge Requirements AISHA/ARB for LVSD if EF <40%: Not Applicable Beta elvis at discharge: Yes Statin for LDL = or >100 mg/dl on DC: Yes - Heart Failure Discharge Requirements AISHA/ARB for LVSD if EF <40%: Not Applicable Beta elvis at discharge: No Reason for no beta elvis on DC: Medical contraindication - Stroke Discharge Requirements Statin for LDL = or >70 mg/dl on DC: Yes Anticoag for atrial fib/atrial flutter: Not Applicable Antithrombotic for ischemic stroke: No Reason for no antithrombotic on DC: Not Indicated Exam - Constitutional Vitals: Temp Pulse Resp BP Pulse Ox 97.6 F 57 L 20 144/97 96 02/17/18 05:22 02/17/18 06:42 02/17/18 06:14 02/17/18 05:22 02/17/18 05:22 General appearance: Present: no acute distress, well-nourished, other - EENT Eyes: Present: PERRL, EOM intact ENT: hearing intact, clear oral mucosa - Neck Neck: Present: supple, normal ROM - Respiratory Respiratory: bilateral: CTA, negative: rales, rhonchi, wheezing - Cardiovascular Rhythm: regular Heart Sounds: Present: S1 & S2 - Extremities Extremities: no ischemia, pulses intact, pulses symmetrical, normal temperature , normal color Peripheral Pulses: within normal limits - Abdominal General gastrointestinal: Present: soft, non-tender, non-distended, normal bowel sounds Male genitourinary: Present: deferred - Rectal Rectal Exam: deferred - Integumentary Integumentary: Present: clear, warm, dry - Musculoskeletal Musculoskeletal: left sided weakness (chronic from previous Stroke. ) - Psychiatric Psychiatric: appropriate mood/affect, intact judgment & insight, cooperative - Neurologic Neurologic: focal deficits (chronic ) - Allied Health Allied health notes reviewed: nursing, social work, case management Plan Activity: no driving until cleared by PCP, fall precautions Diet: low cholesterol, low salt Wound: keep clean and dry, per wound nurse instructions Special Instructions: record daily weights, record daily BP diary, home health RN Follow up with: PRIMARY CARE,MD [Primary Care Provider] - 7 Days Prescriptions: Amoxicillin/K Clav Tab [Augmentin 875MG TAB] 1 each PO Q12HR 14 Days #28 tablet Ibuprofen [Motrin 400 MG tab] 400 mg PO Q8H PRN #30 tablet PRN Reason: Pain, Mild (1-3) Sulfamethoxazole/Trimethoprim [Bactrim DS TAB] 1 each PO Q12HR 10 Days #20 tablet
[2018-02-17 13:08] VITALS: BP 130/87
[2018-02-17] MEDS ORDERED: BACTRIM DS PO SCH (14:00)
[2018-02-17] MEDS ORDERED: AUGMENTIN 875 MG PO SCH (22:00)
== END 2018-02-17 13:38 | disposition home health service (06) | DRG 872 ==
LOC: ED 21:30 → 3A 02-13 13:10
PROVIDERS: ADMIT Internal Medicine; ATTEND Family Medicine
PROC: 0H98XZZ Drainage of Buttock Skin, External Approach (ICD-10-PCS; principal; 2018-02-13)
PROC: 0X940ZZ Drainage of Right Axilla, Open Approach (ICD-10-PCS; 2018-02-13)
PROC: 3E0234Z Introduction of Serum, Toxoid and Vaccine into Muscle, Percutaneous Approach (ICD-10-PCS; 2018-02-14)
DX: A41.9 Sepsis, unspecified organism (principal); E87.1 Hypo-osmolality and hyponatremia; L02.31 Cutaneous abscess of buttock; L03.317 Cellulitis of buttock; L02.411 Cutaneous abscess of right axilla; I69.354 Hemiplegia and hemiparesis following cerebral infarction affecting left non-dominant side; L03.111 Cellulitis of right axilla; G89.4 Chronic pain syndrome; I25.119 Atherosclerotic heart disease of native coronary artery with unspecified angina pectoris; E78.5 Hyperlipidemia, unspecified; E87.5 Hyperkalemia; G62.9 Polyneuropathy, unspecified; R74.0 Nonspecific elevation of levels of transaminase and lactic acid dehydrogenase [LDH]; F32.9 Major depressive disorder, single episode, unspecified; F17.200 Nicotine dependence, unspecified, uncomplicated; I11.0 Hypertensive heart disease with heart failure; I50.9 Heart failure, unspecified; I25.2 Old myocardial infarction; Z95.5 Presence of coronary angioplasty implant and graft; Z79.899 Other long term (current) drug therapy; Z23 Encounter for immunization
CPT/HCPCS: 36415; 71046; 72193; 80048; 80053; 80202; 82140; 83036; 84484; 85025; 87040; 87116; 90686; 90732; 93005; 93010; 99285; 99406; A9270-GY; J0295; J0696; J1170; J2270; J2405; J3370; J7030; J7040; J7050; Q9967

== ENCOUNTER 2018-02-19 08:32 | Emergency (ER) | payer MEDICARE ==
[2018-02-19 08:40] VITALS: BP 160/100
--- NOTE | 2018-02-19 09:37 | Emergency Department Report ---
ED Recheck HPI - General Chief Complaint: Skin/Abscess/Foreign Body Stated Complaint: BUTT PAIN/FEVER Time Seen by Provider: 02/19/18 09:01 Source: patient, EMS Mode of arrival: Ambulatory Limitations: No Limitations - History of Present Illness Initial Comments: 52-year-old male status post I&D to right buttock abscess 5 days ago. Patient was admitted for IV antibiotics at that time. Patient was discharged, states he was supposed to have a home health nurse come to change dressings, but they never showed up. Patient states he pulled packing himself for abscess. Patient here for wound recheck. Reports mild continued pain, states was given prescription for ibuprofen at discharge, states is not helping. MD Complaint: wound re-check -: days(s) Initial Visit For: abscess Returns Today for: wound recheck, persistent/worsening Symptoms Since Prior Visit: no new symptoms Associated Symptoms: denies: fever, abdominal pain - Related Data Previous Rx's Medication Instructions Recorded Last Taken Type Lisinopril [Zestril TAB] 40 mg PO QDAY #30 02/29/16 1 Day Ago Rx ~02/01/17 buPROPion SR [Wellbutrin SR] 100 mg PO BID #60 tablet 02/29/16 1 Day Ago Rx ~02/01/17 Aspirin EC [Aspirin Enteric Coated 81 mg PO QDAY #30 tablet 11/13/16 1 Day Ago Rx TAB] ~02/01/17 Clopidogrel [Plavix] 75 mg PO QDAY #30 tablet 11/13/16 1 Day Ago Rx ~02/01/17 Pregabalin [Lyrica] 75 mg PO BID capsule 11/13/16 1 Day Ago Rx ~02/01/17 Rosuvastatin Calcium [Crestor] 40 mg PO QHS #30 tablet 11/13/16 1 Day Ago Rx ~02/01/17 Amoxicillin/K Clav Tab [Augmentin 1 each PO Q12HR 14 Days #28 tablet 02/17/18 Unknown Rx 875MG TAB] Ibuprofen [Motrin 400 MG tab] 400 mg PO Q8H PRN #30 tablet 02/17/18 Unknown Rx Sulfamethoxazole/Trimethoprim 1 each PO Q12HR 10 Days #20 tablet 02/17/18 Unknown Rx [Bactrim DS TAB] traMADol [Ultram] 50 mg PO Q6HR PRN #7 tablet 02/19/18 Unknown Rx Allergies Allergy/AdvReac Type Severity Reaction Status Date / Time No Known Allergies Allergy Verified 11/14/17 07:31 ED Review of Systems ROS: Stated complaint: BUTT PAIN/FEVER Other details as noted in HPI Comment: All other systems reviewed and negative Constitutional: denies: fever Skin: other (denies purulent drainage) ED Past Medical Hx - Past Medical History Previous Medical History?: Yes Hx Hypertension: Yes Hx CVA: Yes (left side weakness) Hx Heart Attack/AMI: Yes Hx Congestive Heart Failure: Yes Hx Diabetes: No Hx Asthma: No Hx COPD: No Additional medical history: [place] -- stents x2 2012; stroke x2 2012. aortic arch aneurysym - evaluated yearly by CT, last done 2014 - Surgical History Past Surgical History?: Yes Additional Surgical History: Cardiac stents x2 - Social History Smoking Status: Former Smoker Substance Use Type: Prescribed - Medications Home Medications: Home Medications Medication Instructions Recorded Confirmed Last Taken Type Lisinopril [Zestril TAB] 40 mg PO QDAY #30 02/29/16 02/13/18 1 Day Ago Rx ~02/01/17 buPROPion SR [Wellbutrin SR] 100 mg PO BID #60 tablet 02/29/16 02/13/18 1 Day Ago Rx ~02/01/17 Aspirin EC [Aspirin Enteric Coated 81 mg PO QDAY #30 tablet 11/13/16 02/13/18 1 Day Ago Rx TAB] ~02/01/17 Clopidogrel [Plavix] 75 mg PO QDAY #30 tablet 11/13/16 02/13/18 1 Day Ago Rx ~02/01/17 Pregabalin [Lyrica] 75 mg PO BID capsule 11/13/16 02/13/18 1 Day Ago Rx ~02/01/17 Rosuvastatin Calcium [Crestor] 40 mg PO QHS #30 tablet 11/13/16 02/13/18 1 Day Ago Rx ~02/01/17 Amoxicillin/K Clav Tab [Augmentin 1 each PO Q12HR 14 Days #28 tablet 02/17/18 Unknown Rx 875MG TAB] Ibuprofen [Motrin 400 MG tab] 400 mg PO Q8H PRN #30 tablet 02/17/18 Unknown Rx Sulfamethoxazole/Trimethoprim 1 each PO Q12HR 10 Days #20 tablet 02/17/18 Unknown Rx [Bactrim DS TAB] traMADol [Ultram] 50 mg PO Q6HR PRN #7 tablet 02/19/18 Unknown Rx ED Physical Exam - General Limitations: No Limitations General appearance: alert, in no apparent distress - Head Head exam: Present: atraumatic, normocephalic - Eye Eye exam: Present: normal appearance - ENT ENT exam: Present: mucous membranes moist - Neck Neck exam: Present: normal inspection - Respiratory Respiratory exam: Present: normal lung sounds bilaterally. Absent: respiratory distress - Cardiovascular Cardiovascular Exam: Present: regular rate, normal rhythm - GI/Abdominal GI/Abdominal exam: Present: soft. Absent: tenderness - Extremities Exam Extremities exam: Present: normal inspection - Neurological Exam Neurological exam: Present: alert, oriented X3 - Psychiatric Psychiatric exam: Present: normal affect, normal mood - Skin Skin exam: Present: other (incision sites to R axilla and R buttock appear clean , no erythema present, no swelling or fluctuance, nontender, no purulence) ED Course Vital Signs 02/19/18 08:35 Temperature 98.2 F Pulse Rate 72 Respiratory 18 Rate Blood Pressure 160/100 O2 Sat by Pulse 97 Oximetry ED Recheck MDM - Differential Diagnosis Wound Recheck, Cellultitis Recheck, Cutananeous Abscess reche - Medical Decision Making 52-year-old male presents to ED for wound check following an I&D of abscesses of right axilla and right buttocks. Wounds appear clean, healing well. No erythema, swelling, purulent associated with these areas. Patient afebrile. Denies he can continue Sitz baths for comfort. Will also give prescription for pain meds Critical care attestation.: If time is entered above; I have spent that time in minutes in the direct care of this critically ill patient, excluding procedure time. ED Disposition Clinical Impression: Encounter for wound re-check Disposition: DC-01 TO HOME OR SELFCARE Is pt being admited?: No Condition: Stable Instructions: Acute Wound Care (ED) Prescriptions: traMADol [Ultram] 50 mg PO Q6HR PRN #7 tablet PRN Reason: Pain Referrals: PRIMARY CARE, [Primary Care Provider] - 3-5 Days Time of Disposition: 09:37
== END 2018-02-19 09:56 | disposition home or self-care (01) ==
LOC: ED 08:32
DX: Z48.00 Encounter for change or removal of nonsurgical wound dressing (principal); I11.0 Hypertensive heart disease with heart failure; I25.2 Old myocardial infarction; Z95.1 Presence of aortocoronary bypass graft; Z79.82 Long term (current) use of aspirin; Z87.891 Personal history of nicotine dependence
CPT/HCPCS: 99283